=== PATIENT | female | born 1990 | race Caucasian/White ===

== ENCOUNTER 2017-11-11 14:40 | Inpatient (IN) | payer MEDICAID ==
[2017-11-11] MEDS ORDERED: Lidocaine 1% 50 ML MDV INJECT PRN (15:02)
[2017-11-11] MEDS ORDERED: Water For Irrigation,Sterile 1,000 ML Container IRR PRN (15:02)
[2017-11-11] MEDS ORDERED: Methylergonovine 0.2 MG/1 ML Amp IM PRN (15:02)
[2017-11-11] MEDS ORDERED: Butorphanol 1 MG/ML SDV IVPUSH PRN (15:02)
[2017-11-11] MEDS ORDERED: Terbutaline 1 MG/ML SDV SUBCUT PRN (15:02)
[2017-11-11] MEDS ORDERED: Sodium Chloride 0.9% 10 ML Syringe FLUSH PRN (15:02)
[2017-11-11] MEDS ORDERED: Sodium Chloride 0.9% 2.5 ML Syringe FLUSH PRN (15:02)
[2017-11-11] MEDS ORDERED: Misoprostol 200 MCG Tab PO PRN (15:02)
[2017-11-11] MEDS ORDERED: Carboprost Tromethamine 250 MCG/1 ML Amp IM PRN (15:02)
[2017-11-11] MEDS ORDERED: Tranexamic Acid 1,000 MG in Sodium Chloride 0.9% 100 ML IV PRN (15:02)
[2017-11-11] MEDS ORDERED: Nalbuphine 10 MG/1 ML Vial IVPUSH PRN (15:02)
[2017-11-11] MEDS ORDERED: Calcium Gluconate 10% 1 GM/10 ML SDV IV PRN (15:06)
[2017-11-11] MEDS ORDERED: Magnesium Sulfate/Water 4 GM in Premix Bag 1 BAG IV ONE (15:06)
[2017-11-11] MEDS ORDERED: Oxytocin/0.9 % Sodium Chloride 30 UNIT/500 ML BAG IV SCH (15:15)
[2017-11-11] MEDS ORDERED: Lactated Ringers 1,000 ML IV SCH ×2 (15:15→19:00)
[2017-11-11] MEDS ORDERED: Sodium Chloride 0.9% 1,000 ML IV SCH (15:45)
[2017-11-11] MEDS: Magnesium Sulfate/Water 40 GM/1,000 ML BAG IV SCH (16:34)
--- NOTE | 2017-11-11 19:17 | PCM.PREANE ---
Preanesthetic Assessment - Anesthesia/Transfusion/Family Hx Anesthesia History: Prior Anesthesia Without Reaction Family History of Anesthesia Reaction: No Transfusion History: No Prior Transfusion(s) - Review of Systems General: No Symptoms Pulmonary: No Symptoms Cardiovascular: No Symptoms Gastrointestinal: No Symptoms Neurological: No Symptoms Other: Reports: None - Physical Assessment Height: 1.65 m Weight: 81.193 kg ASA Class: 2 Mental Status: Alert & Oriented x3 Dentition: Reports: Normal Dentition ROM/Head Extension: Full - Lab Values: Laboratory Last Values WBC 9.58 K/uL (4.0-11.0) 11/11/17 15:35 RBC 3.60 M/uL (4.30-5.90) L 11/11/17 15:35 Hgb 10.9 g/dL (12.0-16.0) L 11/11/17 15:35 Hct 31.8 % (36.0-46.0) L 11/11/17 15:35 MCV 88.3 fL (80.0-98.0) 11/11/17 15:35 MCH 30.3 pg (27.0-32.0) 11/11/17 15:35 MCHC 34.3 g/dL (31.0-37.0) 11/11/17 15:35 RDW Std Deviation 44.5 fl (28.0-62.0) 11/11/17 15:35 RDW Coeff of Justine 14 % (11.0-15.0) 11/11/17 15:35 Plt Count 206 K/uL (150-400) 11/11/17 15:35 MPV 11.00 fL (7.40-12.00) 11/11/17 15:35 Nucleated RBC % 0.0 /100WBC 11/11/17 15:35 Nucleated RBCs # 0 K/uL 11/11/17 15:35 Blood Type B POSITIVE 11/11/17 15:35 Antibody Screen NEGATIVE 11/11/17 15:35 - Allergies Allergies/Adverse Reactions: Allergies Allergy/AdvReac Type Severity Reaction Status Date / Time No Known Allergies Allergy Verified 08/14/13 05:32 - Acknowledgements Anesthesia Type Planned: Epidural Pt an Appropriate Candidate for the Planned Anesthesia: Yes Alternatives and Risks of Anesthesia Discussed w Pt/Guardian: Yes Pt/Guardian Understands and Agrees with Anesthesia Plan: Yes PreAnesthesia Questionnaire HEENT History: Reports: Impaired Vision Cardiovascular History: Reports: None Respiratory History: Reports: None Gastrointestinal History: Reports: None Genitourinary History: Reports: None 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: , 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 Musculoskeletal History: Reports: None Neurological History: Reports: None Psychiatric History: Reports: ADHD, Anxiety, Panic Attack Endocrine/Metabolic History: Reports: None Hematologic History: Reports: None Oncologic (Cancer) History: Reports: None Dermatologic History: Reports: None - Infectious Disease History Infectious Disease History: Reports: Chicken Pox, Mononucleosis - Past Surgical History HEENT Surgical History: Reports: Adenoidectomy, Oral Surgery, Tonsillectomy Female Surgical History: Reports: None - SUBSTANCE USE Smoking Status *Q: Former Smoker Tobacco Use Within Last Twelve Months: No Recreational Drug Use History: No - HOME MEDS Home Medications: Home Meds Ibuprofen [Motrin] 400 mg PO Q6H PRN #10 tablet 08/16/13 [Rx] Vits #93/Iron Fum/FA [ Formula Tablet] 1 each PO 11/03/17 [ History] hydrOXYzine pamoate [Hydroxyzine Pamoate] 25 mg Q8HR 11/03/17 [History] - CURRENT (IN HOUSE) MEDS Current Meds: Current Medications Butorphanol Tartrate (Stadol) 1 mg IVPUSH Q1H PRN PRN Reason: Pain Calcium Gluconate (Calcium Gluconate) 1 gm IV ASDIRECTED PRN PRN Reason: respiratory distress Carboprost Tromethamine (Hemabate Ds) 250 mcg IM ASDIRECTED PRN PRN Reason: Post Hemorrhage Lactated Ringer's (Ringers, Lactated) 1,000 mls @ 10 mls/hr IV ASDIRECTED JING Last Admin: 11/11/17 16:24 Dose: 10 mls/hr Oxytocin/Sodium Chloride (Oxytocin 30 Unit/500 Ml-Ns) 30 unit in 500 mls @ 2 mls/hr IV TITRATE JING; Protocol Last Titration: 11/11/17 18:04 Dose: 8 munits/min, 8 mls/hr Tranexamic Acid 1,000 mg/ (Sodium Chloride) 110 mls @ 660 mls/hr IV ONETIME PRN PRN Reason: Bleeding Magnesium Sulfate (Magnesium Sulfate 40 Gm In Water 1000 Ml) 40 gm in 1,000 mls @ 50 mls/hr IV ASDIRECTED [facility] Last Admin: 11/11/17 16:34 Dose: 2 gm/hr, 50 mls/hr Sodium Chloride (Normal Saline) 1,000 mls @ 10 mls/hr IV ASDIRECTED [facility] Last Admin: 11/11/17 16:10 Dose: 10 mls/hr Lactated Ringer's (Ringers, Lactated) 1,000 mls @ 999 mls/hr IV .BOLUS [facility] Lidocaine HCl (Xylocaine 1%) 50 ml INJECT ONETIME PRN PRN Reason: Laceration repair Methylergonovine Maleate (Methergine) 0.2 mg IM ASDIRECTED PRN PRN Reason: Post Hemorrhage Misoprostol (Cytotec) 200 mcg PO ONETIME PRN PRN Reason: Post Hemorrhage Nalbuphine HCl (Nubain) 10 mg IVPUSH Q1H PRN PRN Reason: Pain (severe 7-10) Sodium Chloride (Saline Flush) 10 ml FLUSH ASDIRECTED PRN PRN Reason: Keep Vein Open Sodium Chloride (Saline Flush) 2.5 ml FLUSH ASDIRECTED PRN PRN Reason: Keep Vein Open Sterile Water (Sterile Water For Irrigation) 1,000 ml IRR ASDIRECTED PRN PRN Reason: delivery Terbutaline Sulfate (Brethine) 0.25 mg SUBCUT ASDIRECTED PRN PRN Reason: Tacysystole Discontinued Medications Magnesium Sulfate 4 gm/ Premix 100 mls @ 300 mls/hr IV BOLUS ONE Stop: 11/11/17 15:25 Last Admin: 11/11/17 16:15 Dose: 300 mls/hr Fentanyl/Bupivacaine HCl (Avuthgho-Mxcxn-Xd 2 Mcg/Ml-0.125%) Confirm Administered Dose 100 mls @ as directed EP .STK-MED ONE Stop: 11/11/17 18:56
--- NOTE | 2017-11-11 19:21 | PCM.PRNOTE ---
- Free Text/Narrative Note: Anes Note Patient requests epidural for L&D. Sitting Position. Sterile technique. Chloraprep skin prep to lumbar area. Midline approach. Sterile technique. Level L3-L4. Local 1% lido Epidural space easily achieved single attempt with ease using ALEXIS technique. Epidural space noted at 5 cm depth. Epidural catheter threaded 4 cm with ease. Neg heme, neg CSF. Sterile dressing applied. Test dose 3 cc 1.5% lido with epi negative. Load 10 cc pump solution in slow divided doses. Pump started at 8 cc per hour with 6 cc q 20 minute prn bolus. Tiffanie Kody. Yonas Recinos CRNA
[2017-11-11] MEDS ORDERED: Ropivacaine 0.2% 2 MG/ML 20 ML SDV ONE ×2 (19:25→21:40)
[2017-11-11] MEDS ORDERED: fentaNYL 100 MCG/2 ML SDV ONE (21:40)
--- NOTE | 2017-11-11 21:50 | PCM.PRNOTE ---
- Free Text/Narrative Note: Anes Note Patietn reports incomplete analgesia with epidural infusion. Epidural catheter was removed and replaced with a new sterile catheter under sterile technique. Chloraprep skin prep. Local 1% lido. Epidural space easily achieved single attempt, and catheter threaded 4 cm with ease. Test dose negative. Loading dose 10 cc 0.2% ropivicaine. Patietn now reports excellent analgesia. Yonas Recinos MARKETING OFFICER
--- NOTE | 2017-11-11 21:51 | PCM.PRNOTE ---
- Free Text/Narrative Note: Anes Note Patient reports incomplete analgesia on right side. Epidural cather pulled back 1 cm. Redosed with 4 cc 0.2% ropivicaine with 2 cc fentanyl. Yonas Recinos CRNA
--- NOTE | 2017-11-11 22:27 | PCM.PRNOTE ---
- Free Text/Narrative Note: Patient reports incomplete analgesia right side. Options were discussed. I offered to repeat the epidural. She understnads and wishes to proceed. Sterile technique. Bet prep X 3. Midline approach level L2-L3. Midline approach. ALEXIS at 5 cm, and cath [id number] 4 cm with ease. Sterile dressing applied. Test dose negative. Loading dose 10cc 0.2 ropivicaine in slow divided doses. Infusion restarted at 8 cc hr with 6 cc q 20 min prn bolus. Patient reports excellent anlgesia. Yonas Recinos CRNA
[2017-11-12] MEDS ORDERED: fentaNYL 100 MCG/2 ML SDV ONE (01:22)
--- NOTE | 2017-11-12 01:40 | PCM.PRNOTE ---
- Free Text/Narrative Note: Anes Note Patient is near complete and requires a sitting dose. Epidural dosed with 2 cc fentanyl and 4 cc 2% lido with epi. Analgesia is improved. Epidural bag is empty Bag changed with another bag od 0.125% ropivicaine with 2 mcg/cc fentanyl at 8 cc hr infusion rate. Yonas Recinos CRNA
[2017-11-12] MEDS ORDERED: Lanolin 100% Cream 7 GM Tube TOP PRN (02:52)
[2017-11-12] MEDS ORDERED: Measles, Mumps & Rubella Vaccine 0.5 ML SDV SUBCUT ONE (02:52)
[2017-11-12] MEDS ORDERED: Witch Hazel Medicated Pads 40/Jar TOP PRN (02:52)
[2017-11-12] MEDS ORDERED: Benzocaine/Menthol 20%-0.5% Spray 78 GM Cannister TOP PRN (02:52)
[2017-11-12] MEDS ORDERED: Bisacodyl 10 MG Supp RECTAL PRN (02:52)
[2017-11-12] MEDS ORDERED: Ibuprofen 400 MG Tab PO PRN (02:52)
[2017-11-12] MEDS ORDERED: Acetaminophen 500 MG Tab PO PRN (02:52)
--- NOTE | 2017-11-12 03:04 | PCM.DEL ---
L & D Note - General Info Date of Service: 11/12/17 - Delivery Note Labor: Induced by Oxytocin Delivery Outcome: Livebirth Infant Delivery Method: Spontaneous Vaginal Delivery-Single Delivery Mode: Spontaneous Presentation: Vertex Nuchal Cord: None Prep: Other Anesthesia Type: Epidural Amniotic Fluid Description: Clear Episiotomy Type: None Laceration: None Placenta: Intact, Spontaneous Cord: 3 Vessels Estimated Blood Loss: 200 Resuscitation Needed: No : Stimulated, [place] Used Score 1 min: 9 Score 5 min: 9 Induction Criteria - Spear Score Spear Score Dilation: 1-2 cm Spear Score Effacement: 60-70% Spear Score 's Station: -2 Spear Score Consistency: Medium Spear Score Cervix Position: Midposition Spear Score Total: 6 Spear Score Presenting Part: Reports: Cephalic - Induction Gestational Age >/= 39 wks: No Medical Indication: Preeclampsia Estimated Pelvis: Reports: Adequate Reassuring Monitoring Strip: Yes Absence of Tachy Systole: No - General Info Date of Service: 11/12/17 - Patient Data Weight - Most Recent: 179 lb Lab Results Last 24 Hours: Laboratory Results - last 24 hr 11/11/17 11/11/17 11/11/17 Range/Units 15:35 15:35 19:27 WBC 9.58 (4.0-11.0) K/uL RBC 3.60 L (4.30-5.90) M/uL Hgb 10.9 L (12.0-16.0) g/dL Hct 31.8 L (36.0-46.0) % MCV 88.3 (80.0-98.0) fL MCH 30.3 (27.0-32.0) pg MCHC 34.3 (31.0-37.0) g/dL RDW Std Deviation 44.5 (28.0-62.0) fl RDW Coeff of Justine 14 (11.0-15.0) % Plt Count 206 (150-400) K/uL MPV 11.00 (7.40-12.00) fL Nucleated RBC % 0.0 /100WBC Nucleated RBCs # 0 K/uL Magnesium 3.9 H (1.8-2.4) mg/dL Blood Type B POSITIVE Antibody Screen NEGATIVE Med Orders - Current: Current Medications Calcium Gluconate (Calcium Gluconate) 1 gm IV ASDIRECTED PRN PRN Reason: respiratory distress Lactated Ringer's (Ringers, Lactated) 1,000 mls @ 10 mls/hr IV ASDIRECTED [facility] Last Admin: 11/11/17 16:24 Dose: 10 mls/hr Magnesium Sulfate (Magnesium Sulfate 40 Gm In Water 1000 Ml) 40 gm in 1,000 mls @ 50 mls/hr IV ASDIRECTED [facility] Last Admin: 11/11/17 16:34 Dose: 2 gm/hr, 50 mls/hr Discontinued Medications Butorphanol Tartrate (Stadol) 1 mg IVPUSH Q1H PRN PRN Reason: Pain Carboprost Tromethamine (Hemabate Ds) 250 mcg IM ASDIRECTED PRN PRN Reason: Post Hemorrhage Fentanyl (Sublimaze) Confirm Administered Dose 100 mcg .ROUTE .STK-MED ONE Stop: 11/11/17 21:41 Fentanyl (Sublimaze) Confirm Administered Dose 100 mcg .ROUTE .STK-MED ONE Stop: 11/12/17 01:23 Oxytocin/Sodium Chloride (Oxytocin 30 Unit/500 Ml-Ns) 30 unit in 500 mls @ 2 mls/hr IV TITRATE JING; Protocol Last Titration: 11/11/17 18:04 Dose: 8 munits/min, 8 mls/hr Tranexamic Acid 1,000 mg/ (Sodium Chloride) 110 mls @ 660 mls/hr IV ONETIME PRN PRN Reason: Bleeding Magnesium Sulfate 4 gm/ Premix 100 mls @ 300 mls/hr IV BOLUS ONE Stop: 11/11/17 15:25 Last Admin: 11/11/17 16:15 Dose: 300 mls/hr Sodium Chloride (Normal Saline) 1,000 mls @ 10 mls/hr IV ASDIRECTED [facility] Last Infusion: 11/11/17 23:38 Dose: 14 mls/hr Lactated Ringer's (Ringers, Lactated) 1,000 mls @ 999 mls/hr IV .BOLUS [facility] Fentanyl/Bupivacaine HCl (Qijktvrl-Afrgx-Yj 2 Mcg/Ml-0.125%) Confirm Administered Dose 100 mls @ as directed EP .STK-MED ONE Stop: 11/11/17 18:56 Fentanyl/Bupivacaine HCl (Sstvygir-Lawue-Pk 2 Mcg/Ml-0.125%) Confirm Administered Dose 100 mls @ as directed EP .STK-MED ONE Stop: 11/12/17 01:33 Lidocaine HCl (Xylocaine 1%) 50 ml INJECT ONETIME PRN PRN Reason: Laceration repair Methylergonovine Maleate (Methergine) 0.2 mg IM ASDIRECTED PRN PRN Reason: Post Hemorrhage Misoprostol (Cytotec) 200 mcg PO ONETIME PRN PRN Reason: Post Hemorrhage Nalbuphine HCl (Nubain) 10 mg IVPUSH Q1H PRN PRN Reason: Pain (severe 7-10) Ropivacaine (Naropin 0.2%) Confirm Administered Dose 20 ml .ROUTE .STK-MED ONE Stop: 11/11/17 19:26 Ropivacaine (Naropin 0.2%) Confirm Administered Dose 20 ml .ROUTE .STK-MED ONE Stop: 11/11/17 21:41 Sodium Chloride (Saline Flush) 10 ml FLUSH ASDIRECTED PRN PRN Reason: Keep Vein Open Sodium Chloride (Saline Flush) 2.5 ml FLUSH ASDIRECTED PRN PRN Reason: Keep Vein Open Sterile Water (Sterile Water For Irrigation) 1,000 ml IRR ASDIRECTED PRN PRN Reason: delivery Terbutaline Sulfate (Brethine) 0.25 mg SUBCUT ASDIRECTED PRN PRN Reason: Tacysystole - Problem List & Annotations (1) Vaginal delivery SNOMED Code(s): 728884517 Code(s): O80 - ENCOUNTER FOR FULL-TERM UNCOMPLICATED DELIVERY Status: Acute Current Visit: Yes (2) Preeclampsia SNOMED Code(s): 111813768 Code(s): O14.90 - UNSPECIFIED PRE-ECLAMPSIA, UNSPECIFIED TRIMESTER Status: Acute Current Visit: Yes - Problem List Review Problem List Initiated/Reviewed/Updated: Yes - My Orders Last 24 Hours: My Active Orders 11/11/17 15:02 Bedrest Bathroom Privileges [RC] ASDIRECTED Communication Order [RC] ASDIRECTED Communication Order [RC] ASDIRECTED Heart Tones [RC] CONTINUOUS Non Stress Test [RC] PER UNIT ROUTINE May Shower [RC] ASDIRECTED Notify Provider [RC] PRN Notify Provider [RC] PRN Notify Provider [RC] STAT Oxygen Therapy [RC] ASDIRECTED Up ad Anay [RC] ASDIRECTED Vaginal Exam [RC] PRN Vaginal Exam [RC] PRN Vital Signs [RC] PER UNIT ROUTINE Vital Signs [RC] PER UNIT ROUTINE Scalp Electrode [WOMSER] Per Unit Routine 11/11/17 15:06 Bedrest [RC] ASDIRECTED Communication Order [RC] PRN Communication Order [RC] PRN Height and Weight [RC] DAILY Intake and Output [RC] QSHIFT Notify Provider [RC] PRN Oxygen Therapy [RC] PRN Vital Signs [RC] ASDIRECTED Calcium Gluconate 1 gm IV ASDIRECTED PRN 11/11/17 15:07 Equipment to Bedside [RC] PRN Notify Provider Status Change [RC] ASDIRECTED 11/11/17 15:15 Lactated Ringers [Ringers, Lactated] 1,000 ml IV ASDIRECTED Magnesium Sulfate/Water [Magnesium Sulfate 40 GM in Water 1000 ML] 40 gm in 1, 000 ml IV ASDIRECTED 11/12/17 01:20 BLOOD GAS ARTERIAL UMBILICAL [BG] Routine BLOOD GAS VENOUS UMBILICAL [BG] Routine 11/12/17 01:30 MAGNESIUM [CHEM] Q6H 11/12/17 02:52 Patient Status [ADT] Routine May Shower [RC] ASDIRECTED Up ad Anay [RC] ASDIRECTED Acetaminophen [Tylenol Extra Strength] 1,000 mg PO Q4H PRN Acetaminophen [Tylenol Extra Strength] 500 mg PO Q4H PRN Benzocaine/Menthol [Dermoplast Pain Relief 20%-0.5% [place]] 78 gm TOP ASDIRECTED PRN Bisacodyl [Dulcolax] 10 mg RECTAL ONETIME PRN Docusate Sodium [Colace] 100 mg PO BID PRN Ibuprofen [Motrin] 400 mg PO Q4H PRN Ibuprofen [Motrin] 800 mg PO Q6H PRN Lanolin [Lansinoh HPA] See Dose Instructions TOP ASDIRECTED PRN Measles, Mumps & Rubella [M-M-R II Vaccine] 0.5 ml SUBCUT .ONCE ONE Witch Ashley [Tucks] 1 pad TOP ASDIRECTED PRN Assess Lochia [WOMSER] Per Unit Routine Assess Uterine Involution [WOMSER] Per Unit Routine Breast Pump [WOMSER] Per Unit Routine Peripheral IV Discontinue [OM.PC] Routine Resuscitation Status Routine 11/12/17 02:54 Perineal Care [OM.PC] Per Unit Routine 11/12/17 05:11 CBC W/O DIFF,HEMOGRAM [HEME] AM 11/12/17 07:30 MAGNESIUM [CHEM] Q6H 11/12/17 13:30 MAGNESIUM [CHEM] Q6H 11/12/17 Breakfast Regular Diet [DIET]
[2017-11-12] MEDS: Acetaminophen 500 MG Tab PO PRN (03:43)
--- NOTE | 2017-11-12 05:08 | OR ---
SURGEON: Mignon Beck MD DATE OF PROCEDURE: 11/12/2017 PREOPERATIVE DIAGNOSES: 1. 38 weeks and 3 days' gestation. 2. Preeclampsia. POSTOPERATIVE DIAGNOSES: 1. 38 weeks and 3 days' gestation. 2. Preeclampsia. 3. Delivered. PROCEDURES: 1. Induction of labor. 2. Spontaneous vaginal delivery. ANESTHESIA: Epidural. ESTIMATED BLOOD LOSS: 200 mL. COMPLICATIONS: None. DISPOSITION: Mother and baby stable in Labor and Delivery room, bonding. FINDINGS: Female , weight 3390 g, score 9 and 9 at one and five minutes respectively. Grossly normal placenta with 3-vessel cord. Intact perineum. BRIEF HISTORY: The patient is a 27-year-old, G4, P2-0-1-2, who presented for her routine care yesterday in the clinic at 38 weeks and 2 days' gestation and was found to have severe range blood pressures, initial BP was 168/100 with a repeat of 158/98. Her BP has been labile within the last 3 weeks and she complained of on and off headaches with visual aura, HELLP labs remained normal. On evaluation she denied headaches, visual disturbances or epigastric pain.Her HELLP were once again normal, all her UA was negative for protein, results of 24 hr urine protein estimation was over 400. She was sent over to Labor and Delivery for induction of labor secondary to preeclampsia. Induction of labor was started with oxytocin infusion titrated as per protocol. On initial vaginal exam, she was 2 cm dilated, 70% effaced, station -3. Magnesium sulfate was also commenced for eclampsia prophylaxis. Artificial rupture of membranes was performed about 4 hours later. At that time, she was 3 cm dilated. Clear amniotic fluid noted and she subsequently received epidural for pain management. Her blood pressures remained elevated, but mainly in the 140s over 90s during the intrapartum thus she never received antihypertensive and she remained asymptomatic. heart tracing was category I. She made good progress becoming fully dilated, commenced active pushing and was set up in a modified dorsal lithotomy position for delivery. She pushed quite well, brought the baby's head down to a +4 within 2 contractions. DESCRIPTION OF PROCEDURE: She had a spontaneous vaginal delivery of a live female in direct occipital anterior position, no nuchal cord, clear amniotic fluid at delivery. Anterior and posterior shoulders and the rest of the baby were delivered without difficulty. Baby was vigorous and cried spontaneously at . The baby was delivered onto the maternal abdomen with the nursery nurse in attendance drying and evaluating her. Delayed cord clamping was observed and the cord was subsequently cut by the father of the baby. With delivery of the infant, oxytocin infusion was converted to titration for active management of 3rd stage of labor. Cord blood and gas samples were obtained. Placenta was delivered by controlled cord traction, appeared to be complete and intact. Examination of the perineum revealed no lacerations. Uterine massage was performed. The uterus was well contracted at the umbilicus. The patient tolerated the procedure well. Sponge, instrument, and needle counts were correct at the end of the procedure. The patient will continue magnesium sulfate for eclampsia prophylaxis for at least 12 to 24 hours after delivery depending on clinical evaluation. ADUMVIV / MODL /[id number] MTDD
--- NOTE | 2017-11-12 08:02 | PCM.POSTAN ---
POST ANESTHESIA ASSESSMENT - RESPIRATORY Respiratory Status: Respiratory Rate WNL - CARDIOVASCULAR CV Status: Pulse Rate WNL - GASTROINTESTINAL GI Status: No Symptoms - POST OP HYDRATION Hydration Status: Adequate & Stable
--- NOTE | 2017-11-12 08:02 | PCM48HPAN ---
Post Anesthesia Note - EVALUATION WITHIN 48HRS OF ANESTHETIC Vital Signs in Normal Range: Yes Patient Participated in Evaluation: Yes Respiratory Function Stable: Yes Airway Patent: Yes Cardiovascular Function Stable: Yes Hydration Status Stable: Yes Pain Control Satisfactory: Yes Nausea and Vomiting Control Satisfactory: Yes Mental Status Recovered: Yes Resp Rate: 16
[2017-11-12] MEDS ORDERED: Labetalol 100 MG Tab PO ONE (12:14)
[2017-11-12] MEDS: Ibuprofen 800 MG Tab PO PRN ×2 (12:25→22:02)
[2017-11-12] MEDS: Magnesium Sulfate/Water 40 GM/1,000 ML BAG IV SCH (12:27)
--- NOTE | 2017-11-12 19:39 | PCM.PNPP ---
- General Info Date of Service: 11/12/17 Functional Status: Reports: Pain Controlled, Tolerating Diet. Denies: Ambulating, Urinating (catheter in place) - Review of Systems General: Reports: Weakness, Fatigue. Denies: Fever, Chills HEENT: Denies: Headaches Pulmonary: Denies: Shortness of Breath Cardiovascular: Denies: Chest Pain, Palpitations, Dyspnea on Exertion Gastrointestinal: Denies: Abdominal Pain Genitourinary: Denies: Dysuria, Burning, Incontinence, Flank Pain Psychiatric: Denies: Confusion, Depression, Mood Lability - General Info Date of Service: 11/12/17 - Patient Data Vital Signs - Most Recent: Last Vital Signs Temp 37.2 C 11/12/17 13:08 Pulse 92 11/12/17 13:08 Resp 18 11/12/17 13:08 BP 154/95 H 11/12/17 13:08 Pulse Ox 96 11/12/17 13:08 Weight - Most Recent: 168 lb 11.2 oz I&O - Last 24 Hours: Intake & Output 11/12/17 11/12/17 11/12/17 06:59 14:59 22:59 Intake Total 2468 945 Output Total 2860 2550 Balance -392 -1605 Lab Results - Last 24 Hours: Laboratory Results - last 24 hr 11/11/17 11/12/17 11/12/17 Range/Units 19:27 01:45 02:56 WBC (4.0-11.0) K/uL RBC (4.30-5.90) M/uL Hgb (12.0-16.0) g/dL Hct (36.0-46.0) % MCV (80.0-98.0) fL MCH (27.0-32.0) pg MCHC (31.0-37.0) g/dL RDW Std Deviation (28.0-62.0) fl RDW Coeff of Justine (11.0-15.0) % Plt Count (150-400) K/uL MPV (7.40-12.00) fL Nucleated RBC % /100WBC Nucleated RBCs # K/uL Cord ABG pH 7.277 (7.18-7.38) Cord ABG Base Excess -5 (-10--2) Cord VBG pH 7.385 (7.25-7.45) Cord VBG Base Excess -4 (-10--2) Magnesium 3.9 H 5.1 H (1.8-2.4) mg/dL 11/12/17 11/12/17 11/12/17 Range/Units 07:28 07:28 13:30 WBC 15.49 H (4.0-11.0) K/uL RBC 3.54 L (4.30-5.90) M/uL Hgb 10.6 L (12.0-16.0) g/dL Hct 31.3 L (36.0-46.0) % MCV 88.4 (80.0-98.0) fL MCH 29.9 (27.0-32.0) pg MCHC 33.9 (31.0-37.0) g/dL RDW Std Deviation 44.3 (28.0-62.0) fl RDW Coeff of Justine 14 (11.0-15.0) % Plt Count 188 (150-400) K/uL MPV 10.60 (7.40-12.00) fL Nucleated RBC % 0.0 /100WBC Nucleated RBCs # 0 K/uL Cord ABG pH (7.18-7.38) Cord ABG Base Excess (-10--2) Cord VBG pH (7.25-7.45) Cord VBG Base Excess (-10--2) Magnesium 6.0 H 6.1 H (1.8-2.4) mg/dL Med Orders - Current: Current Medications Acetaminophen (Tylenol Extra Strength) 500 mg PO Q4H PRN PRN Reason: Pain Acetaminophen (Tylenol Extra Strength) 1,000 mg PO Q4H PRN PRN Reason: Pain Last Admin: 11/12/17 03:43 Dose: 1,000 mg Benzocaine/Menthol (Dermoplast Pain Relief 20%-0.5% [place]) 78 gm TOP ASDIRECTED PRN PRN Reason: Perineal Comfort Measure Bisacodyl (Dulcolax) 10 mg RECTAL ONETIME PRN PRN Reason: Constipation Calcium Gluconate (Calcium Gluconate) 1 gm IV ASDIRECTED PRN PRN Reason: respiratory distress Docusate Sodium (Colace) 100 mg PO BID PRN PRN Reason: Constipation Emollient Ointment (Lansinoh Hpa) 0 gm TOP ASDIRECTED PRN PRN Reason: Sore Nipples Lactated Ringer's (Ringers, Lactated) 1,000 mls @ 10 mls/hr IV ASDIRECTED JING Last Admin: 11/11/17 16:24 Dose: 10 mls/hr Magnesium Sulfate (Magnesium Sulfate 40 Gm In Water 1000 Ml) 40 gm in 1,000 mls @ 50 mls/hr IV ASDIRECTED JING Last Admin: 11/12/17 12:27 Dose: 2 gm/hr, 50 mls/hr Ibuprofen (Motrin) 400 mg PO Q4H PRN PRN Reason: Pain Ibuprofen (Motrin) 800 mg PO Q6H PRN PRN Reason: Pain Last Admin: 11/12/17 12:25 Dose: 800 mg Witch Ashley (Tucks) 1 pad TOP ASDIRECTED PRN PRN Reason: comfort care Discontinued Medications Butorphanol Tartrate (Stadol) 1 mg IVPUSH Q1H PRN PRN Reason: Pain Carboprost Tromethamine (Hemabate Ds) 250 mcg IM ASDIRECTED PRN PRN Reason: Post Hemorrhage Fentanyl (Sublimaze) Confirm Administered Dose 100 mcg .ROUTE .STK-MED ONE Stop: 11/11/17 21:41 Last Admin: 11/12/17 10:50 Dose: Not Given Fentanyl (Sublimaze) Confirm Administered Dose 100 mcg .ROUTE .STK-MED ONE Stop: 11/12/17 01:23 Last Admin: 11/12/17 10:51 Dose: Not Given Oxytocin/Sodium Chloride (Oxytocin 30 Unit/500 Ml-Ns) 30 unit in 500 mls @ 2 mls/hr IV TITRATE J[facility]; Protocol Last Titration: 11/11/17 18:04 Dose: 8 munits/min, 8 mls/hr Tranexamic Acid 1,000 mg/ (Sodium Chloride) 110 mls @ 660 mls/hr IV ONETIME PRN PRN Reason: Bleeding Magnesium Sulfate 4 gm/ Premix 100 mls @ 300 mls/hr IV BOLUS ONE Stop: 11/11/17 15:25 Last Admin: 11/11/17 16:15 Dose: 300 mls/hr Sodium Chloride (Normal Saline) 1,000 mls @ 10 mls/hr IV ASDIRECTED [facility] Last Infusion: 11/11/17 23:38 Dose: 14 mls/hr Lactated Ringer's (Ringers, Lactated) 1,000 mls @ 999 mls/hr IV .BOLUS JING Fentanyl/Bupivacaine HCl (Hzmtmvax-Ojcih-Up 2 Mcg/Ml-0.125%) Confirm Administered Dose 100 mls @ as directed EP .STK-MED ONE Stop: 11/11/17 18:56 Last Admin: 11/12/17 10:50 Dose: Not Given Fentanyl/Bupivacaine HCl (Fhcqgcbe-Ysexj-Vi 2 Mcg/Ml-0.125%) Confirm Administered Dose 100 mls @ as directed EP .STK-MED ONE Stop: 11/12/17 01:33 Last Admin: 11/12/17 10:51 Dose: Not Given Labetalol HCl (Normodyne) 200 mg PO ONETIME ONE Stop: 11/12/17 12:15 Last Admin: 11/12/17 12:25 Dose: 200 mg Lidocaine HCl (Xylocaine 1%) 50 ml INJECT ONETIME PRN PRN Reason: Laceration repair Measles/Mumps/Rubella Vaccine Live (M-M-R Ii Vaccine) 0.5 ml SUBCUT .ONCE ONE Stop: 11/12/17 02:53 Methylergonovine Maleate (Methergine) 0.2 mg IM ASDIRECTED PRN PRN Reason: Post Hemorrhage Misoprostol (Cytotec) 200 mcg PO ONETIME PRN PRN Reason: Post Hemorrhage Nalbuphine HCl (Nubain) 10 mg IVPUSH Q1H PRN PRN Reason: Pain (severe 7-10) Ropivacaine (Naropin 0.2%) Confirm Administered Dose 20 ml .ROUTE .STK-MED ONE Stop: 11/11/17 19:26 Last Admin: 11/12/17 10:50 Dose: Not Given Ropivacaine (Naropin 0.2%) Confirm Administered Dose 20 ml .ROUTE .STK-MED ONE Stop: 11/11/17 21:41 Last Admin: 11/12/17 10:50 Dose: Not Given Sodium Chloride (Saline Flush) 10 ml FLUSH ASDIRECTED PRN PRN Reason: Keep Vein Open Sodium Chloride (Saline Flush) 2.5 ml FLUSH ASDIRECTED PRN PRN Reason: Keep Vein Open Sterile Water (Sterile Water For Irrigation) 1,000 ml IRR ASDIRECTED PRN PRN Reason: delivery Last Admin: 11/12/17 04:42 Dose: 1,000 ml Terbutaline Sulfate (Brethine) 0.25 mg SUBCUT ASDIRECTED PRN PRN Reason: Tacysystole - Interaction Infant Disposition, : in Room with Family Interaction: Holding Infant Infant Feeding: Breastfed Infant; Nursed Well Support Person: Significant Other - Recovery Exam Fundal Tone: Firm Fundal Level: 2 Fingerbreadths Below Umbilicus Fundal Placement: Midline Lochia Amount: Scant Lochia Color: Rubra/Red Perineum Description: Intact, Minimal Bruising/Swelling Bladder Status: Indwelling Catheter in Place - Exam General: Alert, Oriented HEENT: Pupils Equal Lungs: Clear to Auscultation, Normal Respiratory Effort Cardiovascular: Regular Rate, Regular Rhythm GI/Abdominal Exam: Normal Bowel Sounds, Non-Tender Extremities: Non-Tender, Pedal Edema Skin: Warm Psy/Mental Status: Alert, Normal Affect, Normal Mood - Problem List & Annotations (1) Vaginal delivery SNOMED Code(s): 338895094 Code(s): O80 - ENCOUNTER FOR FULL-TERM UNCOMPLICATED DELIVERY Status: Acute Current Visit: Yes (2) Preeclampsia SNOMED Code(s): 353502765 Code(s): O14.90 - UNSPECIFIED PRE-ECLAMPSIA, UNSPECIFIED TRIMESTER Status: Acute Current Visit: Yes Qualifiers: Trimester: third trimester Qualified Code(s): O14.93 - Unspecified pre- eclampsia, third trimester - Problem List Review Problem List Initiated/Reviewed/Updated: Yes - My Orders Last 24 Hours: My Active Orders 11/12/17 02:52 Patient Status [ADT] Routine May Shower [RC] ASDIRECTED Up ad Anay [RC] ASDIRECTED Acetaminophen [Tylenol Extra Strength] 1,000 mg PO Q4H PRN Acetaminophen [Tylenol Extra Strength] 500 mg PO Q4H PRN Benzocaine/Menthol [Dermoplast Pain Relief 20%-0.5% [place]] 78 gm TOP ASDIRECTED PRN Bisacodyl [Dulcolax] 10 mg RECTAL ONETIME PRN Docusate Sodium [Colace] 100 mg PO BID PRN Ibuprofen [Motrin] 400 mg PO Q4H PRN Ibuprofen [Motrin] 800 mg PO Q6H PRN Lanolin [Lansinoh HPA] See Dose Instructions TOP ASDIRECTED PRN Jamshid Ramirez [Tucks] 1 pad TOP ASDIRECTED PRN Assess Lochia [WOMSER] Per Unit Routine Assess Uterine Involution [WOMSER] Per Unit Routine Breast Pump [WOMSER] Per Unit Routine Peripheral IV Discontinue [OM.PC] Routine Resuscitation Status Routine 11/12/17 02:54 Perineal Care [OM.PC] Per Unit Routine 11/12/17 Breakfast Regular Diet [DIET] - Assessment Assessment:: PPD#0 s/p ,following IOL for preeclampsia, asymptomatic currently on MgSO4, apart from feeling abit "foggy" is tolerating it well BP: 130-140's/80's mostly with outliners of 150's/90. She was given a dose of Labetalol 200mg at 12 noon. Current BP 132/80 Urine output: 2550mls/12hr Weight down to 168 from 179lbs - Plan Plan:: Discontinue MgSO4 Remove Pop Continue daily weights Will continue to monitor BP closely
[2017-11-12] MEDS: Docusate Sodium 100 MG Cap PO PRN (21:30)
[2017-11-13] MEDS: Ibuprofen 800 MG Tab PO PRN ×3 (06:22→21:49)
--- NOTE | 2017-11-13 14:25 | PCM.PNPP ---
- General Info Date of Service: 11/13/17 Functional Status: Reports: Pain Controlled, Tolerating Diet, Ambulating, Urinating - Review of Systems General: Denies: Fever HEENT: Denies: Headaches Pulmonary: Denies: Shortness of Breath, Pleuritic Chest Pain Cardiovascular: Denies: Chest Pain, Palpitations, Dyspnea on Exertion Gastrointestinal: Denies: Abdominal Pain Genitourinary: Denies: Dysuria, Frequency, Incontinence Psychiatric: Denies: Depression, Mood Lability, Anxiety - General Info Date of Service: 11/13/17 - Patient Data Vital Signs - Most Recent: Last Vital Signs Temp 36.7 C 11/13/17 07:20 Pulse 75 11/13/17 07:20 Resp 16 11/13/17 07:20 BP 134/80 11/13/17 07:20 Pulse Ox 95 11/13/17 07:20 Weight - Most Recent: 172 lb 8 oz I&O - Last 24 Hours: Intake & Output 11/12/17 11/13/17 11/13/17 22:59 06:59 14:59 Intake Total 945 Output Total 2550 Balance -1605 Med Orders - Current: Current Medications Acetaminophen (Tylenol Extra Strength) 500 mg PO Q4H PRN PRN Reason: Pain Acetaminophen (Tylenol Extra Strength) 1,000 mg PO Q4H PRN PRN Reason: Pain Last Admin: 11/12/17 03:43 Dose: 1,000 mg Benzocaine/Menthol (Dermoplast Pain Relief 20%-0.5% [place]) 78 gm TOP ASDIRECTED PRN PRN Reason: Perineal Comfort Measure Last Admin: 11/12/17 21:31 Dose: 1 can Bisacodyl (Dulcolax) 10 mg RECTAL ONETIME PRN PRN Reason: Constipation Calcium Gluconate (Calcium Gluconate) 1 gm IV ASDIRECTED PRN PRN Reason: respiratory distress Docusate Sodium (Colace) 100 mg PO BID PRN PRN Reason: Constipation Last Admin: 11/12/17 21:30 Dose: 100 mg Emollient Ointment (Lansinoh Hpa) 0 gm TOP ASDIRECTED PRN PRN Reason: Sore Nipples Last Admin: 11/12/17 21:31 Dose: 1 tube Lactated Ringer's (Ringers, Lactated) 1,000 mls @ 10 mls/hr IV ASDIRECTED JING Last Admin: 11/11/17 16:24 Dose: 10 mls/hr Magnesium Sulfate (Magnesium Sulfate 40 Gm In Water 1000 Ml) 40 gm in 1,000 mls @ 50 mls/hr IV ASDIRECTED JING Last Admin: 11/12/17 12:27 Dose: 2 gm/hr, 50 mls/hr Ibuprofen (Motrin) 400 mg PO Q4H PRN PRN Reason: Pain Ibuprofen (Motrin) 800 mg PO Q6H PRN PRN Reason: Pain Last Admin: 11/13/17 06:22 Dose: 800 mg Witch Ashley (Tucks) 1 pad TOP ASDIRECTED PRN PRN Reason: comfort care Last Admin: 11/12/17 21:30 Dose: 1 tub Discontinued Medications Butorphanol Tartrate (Stadol) 1 mg IVPUSH Q1H PRN PRN Reason: Pain Carboprost Tromethamine (Hemabate Ds) 250 mcg IM ASDIRECTED PRN PRN Reason: Post Hemorrhage Fentanyl (Sublimaze) Confirm Administered Dose 100 mcg .ROUTE .STK-MED ONE Stop: 11/11/17 21:41 Last Admin: 11/12/17 10:50 Dose: Not Given Fentanyl (Sublimaze) Confirm Administered Dose 100 mcg .ROUTE .STK-MED ONE Stop: 11/12/17 01:23 Last Admin: 11/12/17 10:51 Dose: Not Given Oxytocin/Sodium Chloride (Oxytocin 30 Unit/500 Ml-Ns) 30 unit in 500 mls @ 2 mls/hr IV TITRATE [facility]; Protocol Last Titration: 11/11/17 18:04 Dose: 8 munits/min, 8 mls/hr Tranexamic Acid 1,000 mg/ (Sodium Chloride) 110 mls @ 660 mls/hr IV ONETIME PRN PRN Reason: Bleeding Magnesium Sulfate 4 gm/ Premix 100 mls @ 300 mls/hr IV BOLUS ONE Stop: 11/11/17 15:25 Last Admin: 11/11/17 16:15 Dose: 300 mls/hr Sodium Chloride (Normal Saline) 1,000 mls @ 10 mls/hr IV ASDIRECTED [facility] Last Infusion: 11/11/17 23:38 Dose: 14 mls/hr Lactated Ringer's (Ringers, Lactated) 1,000 mls @ 999 mls/hr IV .BOLUS JING Fentanyl/Bupivacaine HCl (Xnkpzngb-Eyyty-Fm 2 Mcg/Ml-0.125%) Confirm Administered Dose 100 mls @ as directed EP .STK-MED ONE Stop: 11/11/17 18:56 Last Admin: 11/12/17 10:50 Dose: Not Given Fentanyl/Bupivacaine HCl (Gmbqfavg-Kqhxp-Lu 2 Mcg/Ml-0.125%) Confirm Administered Dose 100 mls @ as directed EP .STK-MED ONE Stop: 11/12/17 01:33 Last Admin: 11/12/17 10:51 Dose: Not Given Labetalol HCl (Normodyne) 200 mg PO ONETIME ONE Stop: 11/12/17 12:15 Last Admin: 11/12/17 12:25 Dose: 200 mg Lidocaine HCl (Xylocaine 1%) 50 ml INJECT ONETIME PRN PRN Reason: Laceration repair Measles/Mumps/Rubella Vaccine Live (M-M-R Ii Vaccine) 0.5 ml SUBCUT .ONCE ONE Stop: 11/12/17 02:53 Methylergonovine Maleate (Methergine) 0.2 mg IM ASDIRECTED PRN PRN Reason: Post Hemorrhage Misoprostol (Cytotec) 200 mcg PO ONETIME PRN PRN Reason: Post Hemorrhage Nalbuphine HCl (Nubain) 10 mg IVPUSH Q1H PRN PRN Reason: Pain (severe 7-10) Ropivacaine (Naropin 0.2%) Confirm Administered Dose 20 ml .ROUTE .STK-MED ONE Stop: 11/11/17 19:26 Last Admin: 11/12/17 10:50 Dose: Not Given Ropivacaine (Naropin 0.2%) Confirm Administered Dose 20 ml .ROUTE .STK-MED ONE Stop: 11/11/17 21:41 Last Admin: 11/12/17 10:50 Dose: Not Given Sodium Chloride (Saline Flush) 10 ml FLUSH ASDIRECTED PRN PRN Reason: Keep Vein Open Sodium Chloride (Saline Flush) 2.5 ml FLUSH ASDIRECTED PRN PRN Reason: Keep Vein Open Sterile Water (Sterile Water For Irrigation) 1,000 ml IRR ASDIRECTED PRN PRN Reason: delivery Last Admin: 11/12/17 04:42 Dose: 1,000 ml Terbutaline Sulfate (Brethine) 0.25 mg SUBCUT ASDIRECTED PRN PRN Reason: Tacysystole - Interaction Infant Disposition, : [place] in Room with Family Interaction: Holding Infant Infant Feeding: Breastfed Infant; Nursed Well Support Person: Significant Other - Recovery Exam Fundal Tone: Firm Fundal Level: 1 Fingerbreadths Below Umbilicus Fundal Placement: Midline Lochia Amount: Scant Lochia Color: Rubra/Red Perineum Description: Intact, Minimal Bruising/Swelling Episiotomy/Laceration: None Bladder Status: Voiding Urinary Elimination: Voided - Exam General: Alert, Oriented Neck: Supple Lungs: Clear to Auscultation, Normal Respiratory Effort Cardiovascular: Regular Rate, Regular Rhythm GI/Abdominal Exam: Normal Bowel Sounds, Soft, Non-Tender Extremities: Non-Tender, Pedal Edema Psy/Mental Status: Alert, Normal Affect, Normal Mood - Problem List & Annotations (1) Vaginal delivery SNOMED Code(s): 973161022 Code(s): O80 - ENCOUNTER FOR FULL-TERM UNCOMPLICATED DELIVERY Status: Acute Current Visit: Yes (2) Preeclampsia SNOMED Code(s): 402728784 Code(s): O14.90 - UNSPECIFIED PRE-ECLAMPSIA, UNSPECIFIED TRIMESTER Status: Acute Current Visit: Yes Qualifiers: Trimester: third trimester Qualified Code(s): O14.93 - Unspecified pre- eclampsia, third trimester - Problem List Review Problem List Initiated/Reviewed/Updated: Yes - Assessment Assessment:: PPD#1 s/p ,following IOL for preeclampsia s/p MgSO4, asymptomatic UO: adequate BP WNL - Plan Plan:: Patient doing well Aim for discharge tomorrow
[2017-11-13] MEDS ORDERED: Hydrocortisone 1% Crm 30 GM Tube TOP PRN (14:26)
[2017-11-13] MEDS ORDERED: Hydrocortisone 2.5% Crm 30 GM Tube TOP PRN (14:29)
[2017-11-13] MEDS: Docusate Sodium 100 MG Cap PO PRN ×2 (14:56→21:48)
[2017-11-14] MEDS: Acetaminophen 500 MG Tab PO PRN (01:05)
[2017-11-14] MEDS: Ibuprofen 800 MG Tab PO PRN ×3 (05:10→21:47)
--- NOTE | 2017-11-14 08:42 | PCM.PNPP ---
- General Info Date of Service: 11/14/17 Admission Dx/Problem (Free Text): 27yo s/p PPD2 with severe preclampsia , s/p Magnessium. Subjective Update: Patient denies any complains , she has on and off headache , which is relieved by tylenol . BPs 130s - 140s/80- 90s Functional Status: Reports: Pain Controlled, Tolerating Diet, Ambulating, Urinating - Review of Systems General: Reports: No Symptoms HEENT: Reports: No Symptoms Pulmonary: Reports: No Symptoms Cardiovascular: Reports: No Symptoms Gastrointestinal: Reports: No Symptoms Genitourinary: Reports: No Symptoms Musculoskeletal: Reports: No Symptoms - General Info Date of Service: 11/14/17 - Patient Data Vital Signs - Most Recent: Last Vital Signs Temp 36.2 C 11/14/17 05:00 Pulse 69 11/14/17 05:00 Resp 15 11/14/17 05:00 BP 140/84 11/14/17 05:00 Pulse Ox 97 11/14/17 05:00 Weight - Most Recent: 78.245 kg Med Orders - Current: Current Medications Acetaminophen (Tylenol Extra Strength) 500 mg PO Q4H PRN PRN Reason: Pain Last Admin: 11/13/17 18:44 Dose: 500 mg Acetaminophen (Tylenol Extra Strength) 1,000 mg PO Q4H PRN PRN Reason: Pain Last Admin: 11/14/17 01:05 Dose: 1,000 mg Benzocaine/Menthol (Dermoplast Pain Relief 20%-0.5% [place]) 78 gm TOP ASDIRECTED PRN PRN Reason: Perineal Comfort Measure Last Admin: 11/12/17 21:31 Dose: 1 can Bisacodyl (Dulcolax) 10 mg RECTAL ONETIME PRN PRN Reason: Constipation Calcium Gluconate (Calcium Gluconate) 1 gm IV ASDIRECTED PRN PRN Reason: respiratory distress Docusate Sodium (Colace) 100 mg PO BID PRN PRN Reason: Constipation Last Admin: 11/13/17 21:48 Dose: 100 mg Emollient Ointment (Lansinoh Hpa) 0 gm TOP ASDIRECTED PRN PRN Reason: Sore Nipples Last Admin: 11/12/17 21:31 Dose: 1 tube Hydrocortisone (Hydrocortisone 1% C[place]) 30 gm TOP ASDIRECTED PRN PRN Reason: Itchy rashes Last Admin: 11/13/17 14:57 Dose: 1 tube Hydrocortisone (Proctozone-Hc 2.5% Crm) 0.2 gm TOP QID PRN PRN Reason: Itching Last Admin: 11/13/17 14:58 Dose: 1 g Lactated Ringer's (Ringers, Lactated) 1,000 mls @ 10 mls/hr IV ASDIRECTED [facility] Last Admin: 11/11/17 16:24 Dose: 10 mls/hr Magnesium Sulfate (Magnesium Sulfate 40 Gm In Water 1000 Ml) 40 gm in 1,000 mls @ 50 mls/hr IV ASDIRECTED [facility] Last Admin: 11/12/17 12:27 Dose: 2 gm/hr, 50 mls/hr Ibuprofen (Motrin) 400 mg PO Q4H PRN PRN Reason: Pain Ibuprofen (Motrin) 800 mg PO Q6H PRN PRN Reason: Pain Last Admin: 11/14/17 05:10 Dose: 800 mg Labetalol HCl (Normodyne) 100 mg PO BID [facility] Jamshid Ramirez (Tucks) 1 pad TOP ASDIRECTED PRN PRN Reason: comfort care Last Admin: 11/12/17 21:30 Dose: 1 tub Discontinued Medications Butorphanol Tartrate (Stadol) 1 mg IVPUSH Q1H PRN PRN Reason: Pain Carboprost Tromethamine (Hemabate Ds) 250 mcg IM ASDIRECTED PRN PRN Reason: Post Hemorrhage Fentanyl (Sublimaze) Confirm Administered Dose 100 mcg .ROUTE .STK-MED ONE Stop: 11/11/17 21:41 Last Admin: 11/12/17 10:50 Dose: Not Given Fentanyl (Sublimaze) Confirm Administered Dose 100 mcg .ROUTE .STK-MED ONE Stop: 11/12/17 01:23 Last Admin: 11/12/17 10:51 Dose: Not Given Oxytocin/Sodium Chloride (Oxytocin 30 Unit/500 Ml-Ns) 30 unit in 500 mls @ 2 mls/hr IV TITRATE [facility]; Protocol Last Titration: 11/11/17 18:04 Dose: 8 munits/min, 8 mls/hr Tranexamic Acid 1,000 mg/ (Sodium Chloride) 110 mls @ 660 mls/hr IV ONETIME PRN PRN Reason: Bleeding Magnesium Sulfate 4 gm/ Premix 100 mls @ 300 mls/hr IV BOLUS ONE Stop: 11/11/17 15:25 Last Admin: 11/11/17 16:15 Dose: 300 mls/hr Sodium Chloride (Normal Saline) 1,000 mls @ 10 mls/hr IV ASDIRECTED JING Last Infusion: 11/11/17 23:38 Dose: 14 mls/hr Lactated Ringer's (Ringers, Lactated) 1,000 mls @ 999 mls/hr IV .BOLUS JING Fentanyl/Bupivacaine HCl (Fgcrmivs-Lhfqy-Zg 2 Mcg/Ml-0.125%) Confirm Administered Dose 100 mls @ as directed EP .STK-MED ONE Stop: 11/11/17 18:56 Last Admin: 11/12/17 10:50 Dose: Not Given Fentanyl/Bupivacaine HCl (Dxyoqzjb-Yvdms-Vq 2 Mcg/Ml-0.125%) Confirm Administered Dose 100 mls @ as directed EP .STK-MED ONE Stop: 11/12/17 01:33 Last Admin: 11/12/17 10:51 Dose: Not Given Labetalol HCl (Normodyne) 200 mg PO ONETIME ONE Stop: 11/12/17 12:15 Last Admin: 11/12/17 12:25 Dose: 200 mg Lidocaine HCl (Xylocaine 1%) 50 ml INJECT ONETIME PRN PRN Reason: Laceration repair Measles/Mumps/Rubella Vaccine Live (M-M-R Ii Vaccine) 0.5 ml SUBCUT .ONCE ONE Stop: 11/12/17 02:53 Methylergonovine Maleate (Methergine) 0.2 mg IM ASDIRECTED PRN PRN Reason: Post Hemorrhage Misoprostol (Cytotec) 200 mcg PO ONETIME PRN PRN Reason: Post Hemorrhage Nalbuphine HCl (Nubain) 10 mg IVPUSH Q1H PRN PRN Reason: Pain (severe 7-10) Ropivacaine (Naropin 0.2%) Confirm Administered Dose 20 ml .ROUTE .STK-MED ONE Stop: 11/11/17 19:26 Last Admin: 11/12/17 10:50 Dose: Not Given Ropivacaine (Naropin 0.2%) Confirm Administered Dose 20 ml .ROUTE .STK-MED ONE Stop: 11/11/17 21:41 Last Admin: 11/12/17 10:50 Dose: Not Given Sodium Chloride (Saline Flush) 10 ml FLUSH ASDIRECTED PRN PRN Reason: Keep Vein Open Sodium Chloride (Saline Flush) 2.5 ml FLUSH ASDIRECTED PRN PRN Reason: Keep Vein Open Sterile Water (Sterile Water For Irrigation) 1,000 ml IRR ASDIRECTED PRN PRN Reason: delivery Last Admin: 11/12/17 04:42 Dose: 1,000 ml Terbutaline Sulfate (Brethine) 0.25 mg SUBCUT ASDIRECTED PRN PRN Reason: Tacysystole - Infant Interaction Disposition, : [place] in Room with Family Interaction: Holding Infant Feeding: Breastfed Infant; Nursed Well Support Person: Significant Other - Recovery Exam Fundal Tone: Firm Fundal Level: 2 Fingerbreadths Below Umbilicus Fundal Placement: Midline Lochia Amount: Scant Lochia Color: Rubra/Red Perineum Description: Intact, Minimal Bruising/Swelling Episiotomy/Laceration: None Bladder Status: Voiding Urinary Elimination: Voided - Exam General: Alert, Oriented HEENT: Pupils Equal Neck: Supple Lungs: Clear to Auscultation Cardiovascular: Regular Rate, Regular Rhythm GI/Abdominal Exam: Normal Bowel Sounds Extremities: Normal Inspection Psy/Mental Status: Alert - Problem List & Annotations (1) Preeclampsia SNOMED Code(s): 535146254 Code(s): O14.90 - UNSPECIFIED PRE-ECLAMPSIA, UNSPECIFIED TRIMESTER Status: Acute Current Visit: Yes Qualifiers: Trimester: third trimester Qualified Code(s): O14.93 - Unspecified pre- eclampsia, third trimester (2) Vaginal delivery SNOMED Code(s): 751383168 Code(s): O80 - ENCOUNTER FOR FULL-TERM UNCOMPLICATED DELIVERY Status: Acute Current Visit: Yes - Problem List Review Problem List Initiated/Reviewed/Updated: Yes - My Orders Last 24 Hours: My Active Orders 11/14/17 09:00 Labetalol [Normodyne] 100 mg PO BID - Assessment Assessment:: PPD#2 s/p ,following IOL for preeclampsia s/p MgSO4, occasional headache UO: adequate BPs 130 - 140/80 - 90s - Plan Plan:: I will start BP medication and watch BP every 3hrs today Will discharge tomorrow if BP stable
[2017-11-14] MEDS ORDERED: Labetalol 100 MG Tab PO SCH ×3 (09:00→21:00)
[2017-11-14] MEDS: Docusate Sodium 100 MG Cap PO PRN ×2 (09:22→21:47)
[2017-11-14] MEDS ORDERED: Labetalol 100 MG Tab PO ONE (12:57)
[2017-11-14] MEDS ORDERED: NIFEdipine 10 MG Cap PO ONE (21:50)
[2017-11-15] MEDS: Docusate Sodium 100 MG Cap PO PRN (08:29)
[2017-11-15] MEDS ORDERED: Labetalol 100 MG Tab PO SCH (09:00)
[2017-11-15 09:08] LABS: CHLORIDE,CL 106 mmol/L (98-107); SODIUM,NA 140 mmol/L (136-145)
[2017-11-15] MEDS ORDERED: Labetalol 20 MG/4 ML Syringe IVPUSH ONE ×2 (09:14→10:08)
[2017-11-15] MEDS ORDERED: NIFEdipine 30 MG Tab.ER PO SCH (09:15)
[2017-11-15] MEDS ORDERED: NIFEdipine 10 MG Cap PO ONE (11:11)
[2017-11-15] MEDS: Ibuprofen 800 MG Tab PO PRN (11:39)
--- NOTE | 2017-11-15 14:59 | PCM.SN ---
- Free Text/Narrative Note: Patient is PPD 3 , underwent induction of labor for severe preclampsia . she is s/p magnessium for 24hrs Patient was started on labetalol due to borderline BPs of 140s- 150/80- 90s/. 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 Patient given stat oral dose of nifedipine 10mg . Her BP normalized to 130s- 140s/ 70 - 80s. BP then started to trend higher . she was given 2 IV labetalol pushed 20 and 40mg BP was still ranging btwn 160 - 170s/ 80- 90. Patient then given another dose of Nifedipine and BP was then 120 - 130s/ 80 -90s Patient denied any headache , RUQ pain , BV . PIH labs - wnl. she also released 30mg procardia Xl Exam General: NAD Chest: CTA BL CVS: s1 s2 no murmurs Abdomen : NAD VE: Normal lochia VSS as above A/P 27 yo P3 s/p with severe preclampsia , labile BPs , now being controlled Plan SCDs in bed Monitor for signs and symptoms of preclampsia Nifedipine 10mg tid d/c labetalol Want to go home , will watch BP today if stable of Nifedipine 10mg tid will d/c tomorrow
[2017-11-15] MEDS: NIFEdipine 10 MG Cap PO SCH ×2 (15:43→23:00)
[2017-11-16] MEDS: Ibuprofen 800 MG Tab PO PRN (00:39)
[2017-11-16] MEDS: NIFEdipine 10 MG Cap PO SCH (06:48)
--- NOTE | 2017-11-16 09:08 | PCM.PNPP ---
- General Info Date of Service: 11/16/17 Admission Dx/Problem (Free Text): 27 yo s/p with severe preclampsia , BP now stable on Nifedipine `10mg tid Subjective Update: Patient denies headache , BV , RUQ pain Functional Status: Reports: Pain Controlled, Tolerating Diet, Ambulating, Urinating - Review of Systems General: Reports: No Symptoms HEENT: Reports: No Symptoms Pulmonary: Reports: No Symptoms Cardiovascular: Reports: No Symptoms Gastrointestinal: Reports: No Symptoms Genitourinary: Reports: No Symptoms Musculoskeletal: Reports: No Symptoms Skin: Reports: No Symptoms Neurological: Reports: No Symptoms Psychiatric: Reports: No Symptoms - General Info Date of Service: 11/16/17 - Patient Data Vital Signs - Most Recent: Last Vital Signs Temp 36.9 C 11/16/17 05:00 Pulse 89 11/16/17 05:00 Resp 16 11/16/17 05:00 BP 135/75 11/16/17 06:48 Pulse Ox 97 11/16/17 05:00 Weight - Most Recent: 71.668 kg Lab Results - Last 24 Hours: Laboratory Results - last 24 hr 11/15/17 Range/Units 08:25 Sodium 140 (136-145) mmol/L Potassium 3.0 L (3.5-5.1) mmol/L Chloride 106 (98-107) mmol/L Carbon Dioxide 27.0 (21.0-32.0) mmol/L BUN 3 L (7.0-18.0) mg/dL Creatinine 0.6 (0.6-1.0) mg/dL Est Cr Clr Drug Dosing 126.73 mL/min Estimated GFR (MDRD) > 60.0 ml/min Glucose 73 L (74-106) mg/dL Uric Acid 4.7 (2.6-7.2) mg/dL Calcium 7.7 L (8.5-10.1) mg/dL Total Bilirubin 0.2 (0.2-1.0) mg/dL AST 32 (15-37) IU/L ALT 20 (14-63) IU/L Alkaline Phosphatase 97 (46-116) U/L Total Protein 5.5 L (6.4-8.2) g/dL Albumin 2.2 L (3.4-5.0) g/dL Globulin 3.3 (2.0-3.5) g/dL Albumin/Globulin Ratio 0.7 L (1.3-2.8) Med Orders - Current: Current Medications Acetaminophen (Tylenol Extra Strength) 500 mg PO Q4H PRN PRN Reason: Pain Last Admin: 11/13/17 18:44 Dose: 500 mg Acetaminophen (Tylenol Extra Strength) 1,000 mg PO Q4H PRN PRN Reason: Pain Last Admin: 11/14/17 01:05 Dose: 1,000 mg Benzocaine/Menthol (Dermoplast Pain Relief 20%-0.5% [place]) 78 gm TOP ASDIRECTED PRN PRN Reason: Perineal Comfort Measure Last Admin: 11/12/17 21:31 Dose: 1 can Bisacodyl (Dulcolax) 10 mg RECTAL ONETIME PRN PRN Reason: Constipation Calcium Gluconate (Calcium Gluconate) 1 gm IV ASDIRECTED PRN PRN Reason: respiratory distress Docusate Sodium (Colace) 100 mg PO BID PRN PRN Reason: Constipation Last Admin: 11/15/17 08:29 Dose: 100 mg Emollient Ointment (Lansinoh Hpa) 0 gm TOP ASDIRECTED PRN PRN Reason: Sore Nipples Last Admin: 11/12/17 21:31 Dose: 1 tube Hydrocortisone (Hydrocortisone 1% Crm) 30 gm TOP ASDIRECTED PRN PRN Reason: Itchy rashes Last Admin: 11/13/17 14:57 Dose: 1 tube Hydrocortisone (Proctozone-Hc 2.5% Crm) 0.2 gm TOP QID PRN PRN Reason: Itching Last Admin: 11/13/17 14:58 Dose: 1 g Lactated Ringer's (Ringers, Lactated) 1,000 mls @ 10 mls/hr IV ASDIRECTED JING Last Admin: 11/11/17 16:24 Dose: 10 mls/hr Magnesium Sulfate (Magnesium Sulfate 40 Gm In Water 1000 Ml) 40 gm in 1,000 mls @ 50 mls/hr IV ASDIRECTED JING Last Admin: 11/12/17 12:27 Dose: 2 gm/hr, 50 mls/hr Ibuprofen (Motrin) 400 mg PO Q4H PRN PRN Reason: Pain Ibuprofen (Motrin) 800 mg PO Q6H PRN PRN Reason: Pain Last Admin: 11/16/17 00:39 Dose: 800 mg Nifedipine (Procardia) 10 mg PO Q8H JING Last Admin: 11/16/17 06:48 Dose: 10 mg [place] (Tucks) 1 pad TOP ASDIRECTED PRN PRN Reason: comfort care Last Admin: 11/12/17 21:30 Dose: 1 tub Discontinued Medications Butorphanol Tartrate (Stadol) 1 mg IVPUSH Q1H PRN PRN Reason: Pain Carboprost Tromethamine (Hemabate Ds) 250 mcg IM ASDIRECTED PRN PRN Reason: Post Hemorrhage Fentanyl (Sublimaze) Confirm Administered Dose 100 mcg .ROUTE .STK-MED ONE Stop: 11/11/17 21:41 Last Admin: 11/12/17 10:50 Dose: Not Given Fentanyl (Sublimaze) Confirm Administered Dose 100 mcg .ROUTE .STK-MED ONE Stop: 11/12/17 01:23 Last Admin: 11/12/17 10:51 Dose: Not Given Oxytocin/Sodium Chloride (Oxytocin 30 Unit/500 Ml-Ns) 30 unit in 500 mls @ 2 mls/hr IV TITRATE [facility]; Protocol Last Titration: 11/11/17 18:04 Dose: 8 munits/min, 8 mls/hr Tranexamic Acid 1,000 mg/ (Sodium Chloride) 110 mls @ 660 mls/hr IV ONETIME PRN PRN Reason: Bleeding Magnesium Sulfate 4 gm/ Premix 100 mls @ 300 mls/hr IV BOLUS ONE Stop: 11/11/17 15:25 Last Admin: 11/11/17 16:15 Dose: 300 mls/hr Sodium Chloride (Normal Saline) 1,000 mls @ 10 mls/hr IV ASDIRECTED JING Last Infusion: 11/11/17 23:38 Dose: 14 mls/hr Lactated Ringer's (Ringers, Lactated) 1,000 mls @ 999 mls/hr IV .BOLUS JING Fentanyl/Bupivacaine HCl (Epuwjkpi-Uskky-Km 2 Mcg/Ml-0.125%) Confirm Administered Dose 100 mls @ as directed EP .STK-MED ONE Stop: 11/11/17 18:56 Last Admin: 11/12/17 10:50 Dose: Not Given Fentanyl/Bupivacaine HCl (Cknungxu-Puika-Zj 2 Mcg/Ml-0.125%) Confirm Administered Dose 100 mls @ as directed EP .STK-MED ONE Stop: 11/12/17 01:33 Last Admin: 11/12/17 10:51 Dose: Not Given Labetalol HCl (Normodyne) 200 mg PO ONETIME ONE Stop: 11/12/17 12:15 Last Admin: 11/12/17 12:25 Dose: 200 mg Labetalol HCl (Normodyne) 100 mg PO BID [facility] Last Admin: 11/14/17 09:22 Dose: 100 mg Labetalol HCl (Normodyne) 200 mg PO ONETIME ONE Stop: 11/14/17 12:58 Last Admin: 11/14/17 13:03 Dose: 200 mg Labetalol HCl (Normodyne) 200 mg PO BID [facility] Labetalol HCl (Normodyne) 300 mg PO BID [facility] Last Admin: 11/14/17 20:58 Dose: 300 mg Labetalol HCl (Normodyne) 400 mg PO BID [facility] Stop: 11/15/17 16:00 Last Admin: 11/15/17 08:29 Dose: 400 mg Labetalol HCl (Normodyne) 20 mg IVPUSH NOW ONE; Protocol Stop: 11/15/17 09:15 Last Admin: 11/15/17 09:25 Dose: 20 mg Labetalol HCl (Normodyne) 40 mg IVPUSH NOW ONE; Protocol Stop: 11/15/17 10:09 Last Admin: 11/15/17 10:21 Dose: 40 mg Lidocaine HCl (Xylocaine 1%) 50 ml INJECT ONETIME PRN PRN Reason: Laceration repair Measles/Mumps/Rubella Vaccine Live (M-M-R Ii Vaccine) 0.5 ml SUBCUT .ONCE ONE Stop: 11/12/17 02:53 Methylergonovine Maleate (Methergine) 0.2 mg IM ASDIRECTED PRN PRN Reason: Post Hemorrhage Misoprostol (Cytotec) 200 mcg PO ONETIME PRN PRN Reason: Post Hemorrhage Nalbuphine HCl (Nubain) 10 mg IVPUSH Q1H PRN PRN Reason: Pain (severe 7-10) Nifedipine (Procardia) 10 mg PO ONETIME ONE Stop: 11/14/17 21:51 Last Admin: 11/14/17 21:56 Dose: 10 mg Nifedipine (Procardia Xl) 30 mg PO DAILY [facility] Stop: 11/15/17 16:00 Last Admin: 11/15/17 09:25 Dose: 30 mg Nifedipine (Procardia) 10 mg PO ONETIME ONE Stop: 11/15/17 11:12 Last Admin: 11/15/17 11:28 Dose: 10 mg Ropivacaine (Naropin 0.2%) Confirm Administered Dose 20 ml .ROUTE .STK-MED ONE Stop: 11/11/17 19:26 Last Admin: 11/12/17 10:50 Dose: Not Given Ropivacaine (Naropin 0.2%) Confirm Administered Dose 20 ml .ROUTE .STK-MED ONE Stop: 11/11/17 21:41 Last Admin: 11/12/17 10:50 Dose: Not Given Sodium Chloride (Saline Flush) 10 ml FLUSH ASDIRECTED PRN PRN Reason: Keep Vein Open Sodium Chloride (Saline Flush) 2.5 ml FLUSH ASDIRECTED PRN PRN Reason: Keep Vein Open Sterile Water (Sterile Water For Irrigation) 1,000 ml IRR ASDIRECTED PRN PRN Reason: delivery Last Admin: 11/12/17 04:42 Dose: 1,000 ml Terbutaline Sulfate (Brethine) 0.25 mg SUBCUT ASDIRECTED PRN PRN Reason: Tacysystole - Infant Interaction Disposition, : [place] in Room with Family Infant Interaction: Holding Feeding: Breastfed Infant; Nursed Well Support Person: Significant Other - Recovery Exam Fundal Tone: Firm Fundal Level: 1 Fingerbreadths Below Umbilicus Fundal Placement: Midline Lochia Amount: Scant Lochia Color: Rubra/Red Perineum Description: Intact, Minimal Bruising/Swelling Episiotomy/Laceration: None Bladder Status: Voiding Urinary Elimination: Voided - Exam General: Alert HEENT: Pupils Equal Lungs: Clear to Auscultation Cardiovascular: Regular Rate, Regular Rhythm Extremities: Normal Inspection Skin: Warm Neurological: No New Focal Deficit - Problem List & Annotations (1) Preeclampsia SNOMED Code(s): 187037982 Code(s): O14.90 - UNSPECIFIED PRE-ECLAMPSIA, UNSPECIFIED TRIMESTER Status: Acute Current Visit: Yes Qualifiers: Trimester: third trimester Qualified Code(s): O14.93 - Unspecified pre- eclampsia, third trimester (2) Vaginal delivery SNOMED Code(s): 755483066 Code(s): O80 - ENCOUNTER FOR FULL-TERM UNCOMPLICATED DELIVERY Status: Acute Current Visit: Yes - Problem List Review Problem List Initiated/Reviewed/Updated: Yes - My Orders Last 24 Hours: My Active Orders 11/15/17 15:00 NIFEdipine [Procardia] 10 mg PO Q8H - Assessment Assessment:: PPD#3 s/p ,following IOL for preeclampsia s/p MgSO4, BP now stable , Normal lochia UO: adequate BPs 130s/80 - 90s - Plan Plan:: Discharge home today on Nifedipine 10mg bid Patient will check BP on tuesday and call us Willl follow up in clinic in 1 week
[2017-11-16] MEDS ORDERED: Measles, Mumps & Rubella Vaccine 0.5 ML SDV SUBCUT ONE (10:10)
== END 2017-11-16 11:27 | disposition home or self-care (01) | DRG 775 ==
LOC: MW.OBCHECK 14:40 → MW.OB 14:45 → MW.OBCHECK 15:02 → MW.OB 15:48 → OBSVTOIN 11-12 01:45 → MW.OB 11-12 06:48
PROVIDERS: ADMIT Obstetrics & Gynecology; ATTEND Obstetrics & Gynecology
PROC: 10E0XZZ Delivery of Products of Conception, External Approach (ICD-10-PCS; principal; 2017-11-12)
PROC: 10907ZC Drainage of Amniotic Fluid, Therapeutic from Products of Conception, Via Natural or Artificial Opening (ICD-10-PCS; 2017-11-12)
PROC: 3E0234Z Introduction of Serum, Toxoid and Vaccine into Muscle, Percutaneous Approach (ICD-10-PCS; 2017-11-16)
DX: O14.14 Severe pre-eclampsia complicating childbirth (principal); Z3A.39 39 weeks gestation of pregnancy; Z37.0 Single live birth; Z23 Encounter for immunization
CPT/HCPCS: 36415; 51702; 59025; 59409; 80053; 82803; 83735; 84550; 85027; 86850; 86900; 86901; 90707; A9270-GY; G0010; J2590; J2795; J3010; J3475; J3490; J7040; J7120

== ENCOUNTER 2018-10-13 09:22 | Inpatient (IN) | payer MEDICAID ==
[2018-10-13] MEDS ORDERED: Misoprostol 25 MCG (1/4 of 100 MCG) Tab VAG PRN (14:49)
[2018-10-13] MEDS ORDERED: Terbutaline 1 MG/ML SDV SUBCUT PRN (14:49)
[2018-10-13] MEDS ORDERED: Oxytocin/0.9 % Sodium Chloride 30 UNIT/500 ML BAG IV SCH ×2 (15:00→17:15)
[2018-10-13] MEDS: Misoprostol 25 MCG (1/4 of 100 MCG) Tab VAG PRN ×2 (15:53→20:07)
[2018-10-13] MEDS ORDERED: Nalbuphine 10 MG/1 ML Vial IVPUSH PRN (17:07)
[2018-10-13] MEDS ORDERED: Sodium Chloride 0.9% 10 ML Syringe FLUSH PRN (17:07)
[2018-10-13] MEDS ORDERED: Carboprost Tromethamine 250 MCG/1 ML Amp IM PRN (17:07)
[2018-10-13] MEDS ORDERED: Ondansetron 4 MG/2 ML SDV IVPUSH PRN (17:07)
[2018-10-13] MEDS ORDERED: Lidocaine 1% 50 ML MDV INJECT PRN (17:07)
[2018-10-13] MEDS ORDERED: Water For Irrigation,Sterile 1,000 ML Container IRR PRN (17:07)
[2018-10-13] MEDS ORDERED: Methylergonovine 0.2 MG/1 ML Amp IM PRN (17:07)
[2018-10-13] MEDS ORDERED: Sodium Chloride 0.9% 2.5 ML Syringe FLUSH PRN (17:07)
[2018-10-13] MEDS ORDERED: Sodium Chloride 0.9% 10 ML SDV IV PRN (17:07)
[2018-10-13] MEDS ORDERED: Tranexamic Acid 1,000 MG in Sodium Chloride 0.9% 100 ML IV PRN (17:07)
[2018-10-13] MEDS ORDERED: Butorphanol 1 MG/ML SDV IVPUSH PRN (17:07)
[2018-10-13 17:09] LABS: CHLORIDE,CL 103 mmol/L (98-107); SODIUM,NA 141 mmol/L (136-145)
[2018-10-14] MEDS: Lactated Ringers 1,000 ML IV SCH ×2 (00:23→02:20)
[2018-10-14] MEDS ORDERED: Ropivacaine HCl/PF 100 ML ONE (01:26)
[2018-10-14] MEDS ORDERED: fentaNYL 100 MCG/2 ML SDV ONE (01:26)
--- NOTE | 2018-10-14 01:50 | PCM.PREANE ---
Preanesthetic Assessment - Anesthesia/Transfusion/Family Hx Anesthesia History: Prior Anesthesia Without Reaction Family History of Anesthesia Reaction: No Transfusion History: No Prior Transfusion(s) - Review of Systems General: No Symptoms Pulmonary: No Symptoms Cardiovascular: No Symptoms, Orthopnea Gastrointestinal: No Symptoms Neurological: No Symptoms Other: Reports: None - Physical Assessment Height: 1.68 m Weight: 73.936 kg ASA Class: 1 Mental Status: Alert & Oriented x3 Dentition: Reports: Normal Dentition ROM/Head Extension: Full - Lab Values: Laboratory Last Values WBC 9.92 K/uL (4.0-11.0) 10/13/18 16:20 RBC 3.38 M/uL (4.30-5.90) L 10/13/18 16:20 Hgb 9.8 g/dL (12.0-16.0) L 10/13/18 16:20 Hct 29.5 % (36.0-46.0) L 10/13/18 16:20 MCV 87.3 fL (80.0-98.0) 10/13/18 16:20 MCH 29.0 pg (27.0-32.0) 10/13/18 16:20 MCHC 33.2 g/dL (31.0-37.0) 10/13/18 16:20 RDW Std Deviation 42.6 fl (28.0-62.0) 10/13/18 16:20 RDW Coeff of Justine 13 % (11.0-15.0) 10/13/18 16:20 Plt Count 191 K/uL (150-400) 10/13/18 16:20 MPV 10.70 fL (7.40-12.00) 10/13/18 16:20 Add Manual Diff YES 10/13/18 16:20 Neutrophils % (Manual) 74 % (48.0-80.0) 10/13/18 16:20 Band Neutrophils % 1 % 10/13/18 16:20 Lymphocytes % (Manual) 76 % (16.0-40.0) H 10/13/18 16:20 Monocytes % (Manual) 5 % (0.0-15.0) 10/13/18 16:20 Eosinophils % (Manual) 3 % (0.0-7.0) 10/13/18 16:20 Basophils % (Manual) 1 % (0.0-1.5) 10/13/18 16:20 Nucleated RBC % 0.0 /100WBC 10/13/18 16:20 Absolute Seg Neuts 7.3 (1.4-5.7) H 10/13/18 16:20 Band Neutrophils # 0.1 10/13/18 16:20 Lymphocytes # (Manual) 7.5 (0.6-2.4) H 10/13/18 16:20 Monocytes # (Manual) 0.5 (0.0-0.8) 10/13/18 16:20 Eosinophils # (Manual) 0.3 (0.0-0.7) 10/13/18 16:20 Basophils # (Manual) 0.1 (0.0-0.1) 10/13/18 16:20 Nucleated RBCs # 0 K/uL 10/13/18 16:20 Sodium 141 mmol/L (136-145) 10/13/18 16:20 Potassium 2.5 mmol/L (3.5-5.1) L 10/13/18 16:20 Chloride 103 mmol/L (98-107) 10/13/18 16:20 Carbon Dioxide 30.6 mmol/L (21.0-32.0) 10/13/18 16:20 BUN 5 mg/dL (7.0-18.0) L 10/13/18 16:20 Creatinine 0.9 mg/dL (0.6-1.0) 10/13/18 16:20 Est Cr Clr Drug Dosing 87.12 mL/min 10/13/18 16:20 Estimated GFR (MDRD) > 60.0 ml/min 10/13/18 16:20 Glucose 99 mg/dL (74-106) 10/13/18 16:20 Uric Acid 5.3 mg/dL (2.6-7.2) 10/13/18 16:20 Calcium 9.5 mg/dL (8.5-10.1) 10/13/18 16:20 Total Bilirubin 0.2 mg/dL (0.2-1.0) 10/13/18 16:20 AST 19 IU/L (15-37) 10/13/18 16:20 ALT 18 IU/L (14-63) 10/13/18 16:20 Alkaline Phosphatase 137 U/L (46-116) H 10/13/18 16:20 Total Protein 5.8 g/dL (6.4-8.2) L 10/13/18 16:20 Albumin 2.1 g/dL (3.4-5.0) L 10/13/18 16:20 Globulin 3.7 g/dL (2.6-4.0) 10/13/18 16:20 Albumin/Globulin Ratio 0.6 (0.9-1.6) L 10/13/18 16:20 Urine Color YELLOW 10/13/18 15:49 Urine Appearance CLEAR 10/13/18 15:49 Urine pH 7.0 (5.0-8.0) 10/13/18 15:49 Ur Specific [place] 1.010 (1.001-1.035) 10/13/18 15:49 Urine Protein NEGATIVE mg/dL (NEGATIVE) 10/13/18 15:49 Urine Glucose (UA) NEGATIVE mg/dL (NEGATIVE) 10/13/18 15:49 Urine Ketones NEGATIVE mg/dL (NEGATIVE) 10/13/18 15:49 Urine Occult Blood NEGATIVE (NEGATIVE) 10/13/18 15:49 Urine Nitrite NEGATIVE (NEGATIVE) 10/13/18 15:49 Urine Bilirubin NEGATIVE (NEGATIVE) 10/13/18 15:49 Urine Urobilinogen 0.2 EU/dL (<2.0) 10/13/18 15:49 Ur Leukocyte Esterase TRACE (NEGATIVE) H 10/13/18 15:49 Blood Type B POSITIVE 10/13/18 16:20 Antibody Screen NEGATIVE 10/13/18 16:20 - Allergies Allergies/Adverse Reactions: Allergies Allergy/AdvReac Type Severity Reaction Status Date / Time No Known Allergies Allergy Verified 08/14/13 05:32 - Acknowledgements Anesthesia Type Planned: Epidural Pt an Appropriate Candidate for the Planned Anesthesia: Yes Alternatives and Risks of Anesthesia Discussed w Pt/Guardian: Yes Pt/Guardian Understands and Agrees with Anesthesia Plan: Yes PreAnesthesia Questionnaire HEENT History: Reports: Impaired Vision Cardiovascular History: Reports: None Respiratory History: Reports: None Gastrointestinal History: Reports: None Genitourinary History: Reports: None ART MUSEUM DOCENT History: Reports: , Spontaneous Musculoskeletal History: Reports: None Neurological History: Reports: None Psychiatric History: Reports: ADHD, Anxiety, Panic Attack Endocrine/Metabolic History: Reports: None Hematologic History: Reports: None Oncologic (Cancer) History: Reports: None Dermatologic History: Reports: None - Infectious Disease History Infectious Disease History: Reports: Chicken Pox - Past Surgical History HEENT Surgical History: Reports: Adenoidectomy, Oral Surgery, Tonsillectomy Cardiovascular Surgical History: Reports: None Female Surgical History: Reports: None - SUBSTANCE USE Smoking Status *Q: Never Smoker Second Hand Smoke Exposure: No Recreational Drug Use History: No - HOME MEDS Home Medications: Home Meds Vits #93/Iron Fum/FA [ Formula Tablet] 1 each PO DAILY [History] hydrOXYzine pamoate [Hydroxyzine Pamoate] 25 mg PO Q8HR PRN 11/03/17 [History] Acetaminophen [Tylenol Extra Strength] 1,000 mg PO Q6HR PRN 11/11/17 [History] Ascorbate Calcium [Vitamin C] 500 mg PO DAILY 11/11/17 [History] Calcium Carbonate [Tums] 500 mg PO ASDIRECTED PRN 11/11/17 [History] Ferrous Sulfate 325 mg PO TIDMEALS 11/11/17 [History] Potassium Chloride 40 meq PO DAILY 11/11/17 [History] - CURRENT (IN HOUSE) MEDS Current Meds: Current Medications Butorphanol Tartrate (Stadol) 1 mg IVPUSH Q1H PRN PRN Reason: Pain Carboprost Tromethamine (Hemabate Ds) 250 mcg IM ASDIRECTED PRN PRN Reason: Post Hemorrhage Oxytocin/Sodium Chloride (Oxytocin 30 Unit/500 Ml-Ns) 30 unit in 500 mls @ 2 mls/hr IV TITRATE JING; Protocol Last Titration: 10/14/18 00:45 Dose: 4 munits/min, 4 mls/hr Lactated Ringer's (Ringers, Lactated) 1,000 mls @ 150 mls/hr IV ASDIRECTED JING Last Admin: 10/14/18 00:23 Dose: 150 mls/hr Oxytocin/Sodium Chloride (Oxytocin 30 Unit/500 Ml-Ns) 30 unit in 500 mls @ 999 mls/hr IV TITRATE JING Tranexamic Acid 1,000 mg/ (Sodium Chloride) 110 mls @ 660 mls/hr IV ONETIME PRN PRN Reason: Bleeding Lidocaine HCl (Xylocaine 1%) 50 ml INJECT ONETIME PRN PRN Reason: Laceration repair Methylergonovine Maleate (Methergine) 0.2 mg IM ASDIRECTED PRN PRN Reason: Post Hemorrhage Misoprostol (Cytotec) 25 mcg VAG ONETIME PRN PRN Reason: Cervical Ripening Last Admin: 10/13/18 20:07 Dose: 25 mcg Misoprostol (Cytotec) 25 mcg VAG Q4H PRN PRN Reason: Cervical Ripening Nalbuphine HCl (Nubain) 10 mg IVPUSH Q1H PRN PRN Reason: Pain (severe 7-10) Ondansetron HCl (Zofran) 4 mg IVPUSH Q4H PRN PRN Reason: Nausea/Vomiting Sodium Chloride (Saline Flush) 10 ml FLUSH ASDIRECTED PRN PRN Reason: Keep Vein Open Sodium Chloride (Saline Flush) 2.5 ml FLUSH ASDIRECTED PRN PRN Reason: Keep Vein Open Sodium Chloride (Normal Saline) 10 ml IV ASDIRECTED PRN PRN Reason: IV Use Sterile Water (Sterile Water For Irrigation) 1,000 ml IRR ASDIRECTED PRN PRN Reason: delivery Terbutaline Sulfate (Brethine) 0.25 mg SUBCUT ASDIRECTED PRN PRN Reason: Tacysystole Discontinued Medications Fentanyl (Sublimaze) Confirm Administered Dose 100 mcg .ROUTE .STK-MED ONE Stop: 10/14/18 01:27 Ropivacaine (Naropin 0.2%) Confirm Administered Dose 100 mls @ as directed .ROUTE .STK-MED ONE Stop: 10/14/18 01:27
--- NOTE | 2018-10-14 01:55 | PCM.PRNOTE ---
- Free Text/Narrative Note: Anes NOte Patient requests epidural for L&D. Sitting position. Sterile technique. Chloraprep scrub to lumbar area. Fenestrated drape applied. Level L2-L3, midline approach single technique. Epidural space eaily achieved single attempt with ease. ALEXIS at 4 cm, cath threaded 5 cm with ease. Catheter secured at 9 cm at skin with sterile adhesive dressing. Test dose 0136 3 cc 1.5% lido with epi negative Load 0139 10 cc 0.2% ropivicaine with 1 mcg/cc fentanyl in slow divided doses. Pump started 0143. Same solution, rate is 8 cc hr with 6 cc q 20 min prn bolus. Tolerated well. Time with patient [id number]. Yonas Recinos [employer]
--- NOTE | 2018-10-14 08:31 | PCM.POSTAN ---
POST ANESTHESIA ASSESSMENT - MENTAL STATUS Mental Status: Alert, Oriented - RESPIRATORY Respiratory Status: Respiratory Rate WNL - CARDIOVASCULAR CV Status: Pulse Rate WNL - GASTROINTESTINAL GI Status: No Symptoms - POST OP HYDRATION Hydration Status: Adequate & Stable
--- NOTE | 2018-10-14 08:32 | PCM48HPAN ---
Post Anesthesia Note - EVALUATION WITHIN 48HRS OF ANESTHETIC Vital Signs in Normal Range: Yes Patient Participated in Evaluation: Yes Respiratory Function Stable: Yes Airway Patent: Yes Cardiovascular Function Stable: Yes Hydration Status Stable: Yes Pain Control Satisfactory: Yes Nausea and Vomiting Control Satisfactory: Yes Mental Status Recovered: Yes
[2018-10-14] MEDS ORDERED: Bisacodyl 10 MG Supp RECTAL PRN (09:47)
[2018-10-14] MEDS ORDERED: Witch Hazel Medicated Pads 40/Jar TOP PRN (09:47)
[2018-10-14] MEDS ORDERED: Lanolin 100% Cream 7 GM Tube TOP PRN (09:47)
[2018-10-14] MEDS ORDERED: Ibuprofen 400 MG Tab PO PRN (09:47)
[2018-10-14] MEDS ORDERED: Benzocaine/Menthol 20%-0.5% Spray 78 GM Cannister TOP PRN (09:47)
[2018-10-14] MEDS ORDERED: Aluminum Hydroxide/Magnesium Hydroxide/Simethicone Susp 30 ML Cup PO PRN (09:47)
[2018-10-14] MEDS ORDERED: Acetaminophen 500 MG Tab PO PRN (09:47)
[2018-10-14] MEDS ORDERED: Docusate Sodium 100 MG Cap PO PRN (09:47)
--- NOTE | 2018-10-14 09:55 | PCM.OPNOTE ---
- General Post-Op/Procedure Note Date of Surgery/Procedure: 10/14/18 Operative Procedure(s): /IP Findings: Viable male APGARs 7, 8 weight pending. Spontaneous delivery intact placenta with 3V cord Pre Op Diagnosis: 37 week IUP. Gestational hypertension Post-Op Diagnosis: Same Anesthesia Technique: Epidural Primary Surgeon: Ora Bingham EBL in mLs: 250 Complications: none known Condition: Stable Free Text/Narrative:: Dictation [id number]
--- NOTE | 2018-10-14 11:16 | OR ---
SURGEON: Ora Bingham M.D. DATE OF PROCEDURE: 10/14/2018 PREOPERATIVE DIAGNOSES: 1. 37-week intrauterine . 2. Gestational hypertension. POSTOPERATIVE DIAGNOSES: 1. 37-week intrauterine . 2. Gestational hypertension. PROCEDURE PERFORMED: Spontaneous vaginal delivery, intact perineum. PRIMARY SURGEON: Ora Bingham M.D. ANESTHESIA: Epidural. ESTIMATED BLOOD LOSS: 250 mL. FINDINGS: Viable male. score of 7 at one minute, 8 at five minute. Weight is pending. Spontaneous delivery, intact placenta, 3-vessel cord. DISPOSITION: nursery. Mom in LDRP, stable. INDICATION FOR PROCEDURE: Kelsie is a 28-year-old G4, P3, at 37 weeks gestational age, who presented on the early afternoon of 10/13/2018, for induction of labor due to gestational hypertension. Blood pressures ranged in the 140s/90s. She denies headaches or visual changes. Labs were reassuring with no proteinuria, normal platelets, normal LFTs. The patient is admitted. IV hydration was initiated. Underwent Cytotec ripening, responded nicely to this. Shortly after midnight, began Pitocin as she was found to be 3 cm, continued to progress and became increasingly uncomfortable, underwent regional anesthesia in the form of epidural. Blood pressures did normalize after the epidural. The patient went on to progress to anterior lip shortly before 9 a.m. Amniotomy was performed, clear fluid was returned. She is group B beta strep negative. heart tones were in the 150s to 160s with variability. The patient thereafter quickly progressed to complete. I was on the floor attending to another patient, was called for delivery, and by the time I came across the sepulveda, the infant had delivered presumptively with nursing staff attending. Infant was crying on the mother's abdomen. After delay, cord was clamped and cut. The cord arterial, cord venous, cord blood sampling obtained. Light pressure was applied while the placenta was delivered spontaneously intact. Vigorous fundal uterine massage was then applied while 30 units Pitocin was delivered in 500 mL of IV fluid. Upon inspection, cervix, vaginal sidewall, perineum were found to be intact. Uterus remained firm. Sponge count, instrument count was correct. The patient remained in LDRP. We will monitor blood pressures closely. Infant to [facility]. TERENCE / MARYURI /[id number]
[2018-10-14] MEDS: Ibuprofen 800 MG Tab PO PRN ×2 (12:19→18:44)
[2018-10-14] MEDS: Labetalol 100 MG Tab PO SCH (19:42)
[2018-10-14] MEDS: oxyCODONE 5 MG Tab PO PRN (23:21)
[2018-10-14] MEDS: Acetaminophen 500 MG Tab PO PRN (23:24)
--- NOTE | 2018-10-15 08:42 | PCM.PNPP ---
- General Info Date of Service: 10/15/18 Functional Status: Reports: Pain Controlled, Tolerating Diet, Ambulating, Urinating - Review of Systems General: Denies: Fever, Weakness, Fatigue Pulmonary: Denies: Shortness of Breath Cardiovascular: Denies: Chest Pain, Palpitations, Lightheadedness Gastrointestinal: Denies: Abdominal Pain, Nausea, Vomiting Genitourinary: Denies: Flank Pain Musculoskeletal: Reports: No Symptoms Skin: Reports: No Symptoms Neurological: Reports: No Symptoms Psychiatric: Reports: No Symptoms - General Info Date of Service: 10/15/18 - Patient Data Vital Signs - Most Recent: Last Vital Signs Temp 36.0 C 10/15/18 07:05 Pulse 79 10/15/18 07:05 Resp 17 10/15/18 07:05 BP 125/72 10/15/18 07:05 Pulse Ox 98 10/15/18 07:05 Weight - Most Recent: 73.936 kg Lab Results - Last 24 Hours: Laboratory Results - last 24 hr 10/14/18 10/15/18 Range/Units 09:22 05:50 WBC 11.97 H (4.0-11.0) K/uL RBC 3.31 L (4.30-5.90) M/uL Hgb 9.5 L (12.0-16.0) g/dL Hct 29.2 L (36.0-46.0) % MCV 88.2 (80.0-98.0) fL MCH 28.7 (27.0-32.0) pg MCHC 32.5 (31.0-37.0) g/dL RDW Std Deviation 43.2 (28.0-62.0) fl RDW Coeff of Justine 14 (11.0-15.0) % Plt Count 182 (150-400) K/uL MPV 10.70 (7.40-12.00) fL Nucleated RBC % 0.0 /100WBC Nucleated RBCs # 0 K/uL Cord ABG pH 7.217 (7.18-7.38) Cord ABG Base Excess -2 (-10--2) Cord VBG pH 7.380 (7.25-7.45) Cord VBG Base Excess 0 H (-10--2) Med Orders - Current: Current Medications Acetaminophen (Tylenol Extra Strength) 500 mg PO Q4H PRN PRN Reason: Pain Last Admin: 10/14/18 23:24 Dose: 500 mg Acetaminophen (Tylenol Extra Strength) 1,000 mg PO Q4H PRN PRN Reason: Pain Al Hydroxide/Mg Hydroxide (Mag-Al Plus) 30 ml PO Q8H PRN PRN Reason: Heartburn Benzocaine/Menthol (Dermoplast Pain Relief 20%-0.5% [place]) 78 gm TOP ASDIRECTED PRN PRN Reason: Perineal Comfort Measure Bisacodyl (Dulcolax) 10 mg RECTAL ONETIME PRN PRN Reason: Constipation Carboprost Tromethamine (Hemabate Ds) 250 mcg IM ASDIRECTED PRN PRN Reason: Post Hemorrhage Docusate Sodium (Colace) 100 mg PO BID PRN PRN Reason: Constipation Emollient Ointment (Lansinoh Hpa) 0 gm TOP ASDIRECTED PRN PRN Reason: Sore Nipples Oxytocin/Sodium Chloride (Oxytocin 30 Unit/500 Ml-Ns) 30 unit in 500 mls @ 2 mls/hr IV TITRATE [facility]; Protocol Last Titration: 10/14/18 06:09 Dose: 20 munits/min, 20 mls/hr Lactated Ringer's (Ringers, Lactated) 1,000 mls @ 150 mls/hr IV ASDIRECTED JING Last Admin: 10/14/18 02:20 Dose: 150 mls/hr Oxytocin/Sodium Chloride (Oxytocin 30 Unit/500 Ml-Ns) 30 unit in 500 mls @ 999 mls/hr IV TITRATE JING Tranexamic Acid 1,000 mg/ (Sodium Chloride) 110 mls @ 660 mls/hr IV ONETIME PRN PRN Reason: Bleeding Ibuprofen (Motrin) 400 mg PO Q4H PRN PRN Reason: Pain Ibuprofen (Motrin) 800 mg PO Q6H PRN PRN Reason: Pain Last Admin: 10/14/18 18:44 Dose: 800 mg Labetalol HCl (Normodyne) 100 mg PO BID JING Last Admin: 10/14/18 19:42 Dose: 100 mg Nalbuphine HCl (Nubain) 10 mg IVPUSH Q1H PRN PRN Reason: Pain (severe 7-10) Ondansetron HCl (Zofran) 4 mg IVPUSH Q4H PRN PRN Reason: Nausea/Vomiting Oxycodone HCl (Oxycodone) 5 mg PO Q2H PRN PRN Reason: Pain Last Admin: 10/14/18 23:21 Dose: 5 mg Sodium Chloride (Saline Flush) 10 ml FLUSH ASDIRECTED PRN PRN Reason: Keep Vein Open Sodium Chloride (Saline Flush) 2.5 ml FLUSH ASDIRECTED PRN PRN Reason: Keep Vein Open Sodium Chloride (Normal Saline) 10 ml IV ASDIRECTED PRN PRN Reason: IV Use Sterile Water (Sterile Water For Irrigation) 1,000 ml IRR ASDIRECTED PRN PRN Reason: delivery Witabdulaziz Ramirez (Tucks) 1 pad TOP ASDIRECTED PRN PRN Reason: comfort care Discontinued Medications Butorphanol Tartrate (Stadol) 1 mg IVPUSH Q1H PRN PRN Reason: Pain Fentanyl (Sublimaze) Confirm Administered Dose 100 mcg .ROUTE .STK-MED ONE Stop: 10/14/18 01:27 Ropivacaine (Naropin 0.2%) Confirm Administered Dose 100 mls @ as directed .ROUTE .STK-MED ONE Stop: 10/14/18 01:27 Lidocaine HCl (Xylocaine 1%) 50 ml INJECT ONETIME PRN PRN Reason: Laceration repair Methylergonovine Maleate (Methergine) 0.2 mg IM ASDIRECTED PRN PRN Reason: Post Hemorrhage Misoprostol (Cytotec) 25 mcg VAG ONETIME PRN PRN Reason: Cervical Ripening Last Admin: 10/13/18 20:07 Dose: 25 mcg Misoprostol (Cytotec) 25 mcg VAG Q4H PRN PRN Reason: Cervical Ripening Terbutaline Sulfate (Brethine) 0.25 mg SUBCUT ASDIRECTED PRN PRN Reason: Tacysystole - Infant Interaction Support Person: Significant Other - Recovery Exam Fundal Tone: Firm Fundal Level: 2 Fingerbreadths Below Umbilicus Fundal Placement: Midline Lochia Amount: Scant Lochia Color: Rubra/Red Perineum Description: Intact, Minimal Bruising/Swelling Episiotomy/Laceration: None Bladder Status: Nonpalpable, Voiding Urinary Elimination: Voided - Exam General: Alert, Oriented Lungs: Normal Respiratory Effort Cardiovascular: Regular Rate, Regular Rhythm GI/Abdominal Exam: Normal Bowel Sounds, Soft Extremities: Pedal Edema (trace). No: Sohail's Sign Skin: Warm, Dry, Intact Neurological: No New Focal Deficit Psy/Mental Status: Alert, Normal Affect, Normal Mood - Problem List & Annotations (1) Transient hypertension of SNOMED Code(s): 936922801 Code(s): O13.9 - GESTATIONAL HTN W/O SIGNIFICANT PROTEINURIA, UNSP TRIMESTER Status: Acute Current Visit: No (2) Vaginal delivery SNOMED Code(s): 946488281 Code(s): O80 - ENCOUNTER FOR FULL-TERM UNCOMPLICATED DELIVERY Status: Acute Current Visit: No - Problem List Review Problem List Initiated/Reviewed/Updated: Yes - My Orders Last 24 Hours: My Active Orders 10/14/18 09:47 Patient Status [ADT] Routine May Shower [RC] ASDIRECTED Up ad Anay [RC] ASDIRECTED Acetaminophen [Tylenol Extra Strength] 1,000 mg PO Q4H PRN Acetaminophen [Tylenol Extra Strength] 500 mg PO Q4H PRN Alum Hydrox/Mag Hydrox/Simeth [Mag-Al Plus] 30 ml PO Q8H PRN Benzocaine/Menthol [Dermoplast Pain Relief 20%-0.5% [place]] 78 gm TOP ASDIRECTED PRN Bisacodyl [Dulcolax] 10 mg RECTAL ONETIME PRN Docusate Sodium [Colace] 100 mg PO BID PRN Ibuprofen [Motrin] 400 mg PO Q4H PRN Ibuprofen [Motrin] 800 mg PO Q6H PRN Lanolin [Lansinoh HPA] See Dose Instructions TOP ASDIRECTED PRN Witch Ashley [Tucks] 1 pad TOP ASDIRECTED PRN oxyCODONE 5 mg PO Q2H PRN Assess Lochia [WOMSER] Per Unit Routine Assess Uterine Involution [WOMSER] Per Unit Routine Ice Therapy [OM.PC] Per Unit Routine Perineal Care [OM.PC] Per Unit Routine Peripheral IV Discontinue [OM.PC] Routine Sitz Bath [OM.PC] Per Unit Routine 10/14/18 18:44 Labetalol [Normodyne] 100 mg PO BID 10/14/18 Lunch Regular Diet [DIET] - Assessment Assessment:: PPD 1 status post Gestational hypertension--on labetalol 100 mg bid - Plan Plan:: Blood pressures much improved on oral antihypertensive. Will monitor today and discharge in the morning if remains stable. She will plan to go to [place] then since baby in the NICU there. Continue cares.
[2018-10-15] MEDS: Labetalol 100 MG Tab PO SCH (09:04)
[2018-10-15] MEDS: Ibuprofen 800 MG Tab PO PRN ×2 (09:06→14:52)
[2018-10-15] MEDS: Acetaminophen 500 MG Tab PO PRN (14:52)
[2018-10-15] MEDS: oxyCODONE 5 MG Tab PO PRN (16:43)
== END 2018-10-15 17:00 | disposition home or self-care (01) | DRG 807 ==
LOC: MW.OB 09:22 → OBSVTOIN 10-14 09:22 → MW.OB 10-14 11:05
PROVIDERS: ADMIT Obstetrics & Gynecology; ATTEND Obstetrics & Gynecology
PROC: 10E0XZZ Delivery of Products of Conception, External Approach (ICD-10-PCS; principal; 2018-10-14)
PROC: 3E033VJ Introduction of Other Hormone into Peripheral Vein, Percutaneous Approach (ICD-10-PCS; 2018-10-14)
PROC: 3E0P7VZ Introduction of Hormone into Female Reproductive, Via Natural or Artificial Opening (ICD-10-PCS; 2018-10-14)
PROC: 3E0R3BZ Introduction of Anesthetic Agent into Spinal Canal, Percutaneous Approach (ICD-10-PCS; 2018-10-14)
PROC: 00HU33Z Insertion of Infusion Device into Spinal Canal, Percutaneous Approach (ICD-10-PCS; 2018-10-14)
DX: O13.4 Gestational [pregnancy-induced] hypertension without significant proteinuria, complicating childbirth (principal); O99.344 Other mental disorders complicating childbirth; F90.9 Attention-deficit hyperactivity disorder, unspecified type; F41.0 Panic disorder [episodic paroxysmal anxiety]; Z37.0 Single live birth; Z3A.37 37 weeks gestation of pregnancy
CPT/HCPCS: 36415; 59025; 59409; 80053; 81003; 82803; 84550; 85025; 85027; 86850; 86900; 86901; A9270-GY; J2590; J2795; J3010; J7120